=== PATIENT | male | born 1945 | race Caucasian/White ===

== ENCOUNTER 2019-06-15 02:20 | Emergency (ER) | payer OTHER, SELFPAY ==
[2019-06-15 02:27] VITALS: BP 189/119; PULSE 98; RESP 18; TEMP 36.5; O2SAT 98; BMI 33.9
--- NOTE | 2019-06-15 02:35 | W.ED.ANXIETY ---
HPI - Anxiety General: Chief Complaint: Anxiety Stated Complaint: possible anxiety Time Seen by Provider: 06/15/19 02:24 History of Present Illness: HPI narrative: Patient states that he had a sudden onset of pain in his chest twice in his computer this evening about 1 hour ago it went away at best quick as it came patient says he is pain-free right now but he has been anxious he has posttraumatic stress syndrome stays up all hours night usually goes to bed 5 or 6 the morning he is feeling fine now and during the conversation patient decides he wants to go ahead and sign out AMA REPLACED BY [facility] ED PFSH: Social History Smoking and tobacco status: former smoker Course Vital Signs: Vital signs: Vital Signs Temperature 97.7 F 06/15/19 02:27 Pulse Rate 98 06/15/19 02:27 Respiratory Rate 18 06/15/19 02:27 Blood Pressure 189/119 06/15/19 02:27 Pulse Oximetry 98 06/15/19 02:27 MDM - Anxiety MDM Narrative: Medical decision making narrative: Patient advised that he should stay and get a cardiac work-up done patient declines asked to sign out AMA patient signed AMA form with Ashley nurse there is a witness. Patient appears stable his blood pressure is high he does take amlodipine for his blood pressure denies any signs or symptoms of cardiac at the time of his signing AMA Discharge Plan Discharge Patient Disposition: Left Against Medical Advice Clinical Impression: Acute anxiety Condition: Stable Discharge Orders: Discharge Order (Routine); Ordered 06/15/19 Ordered By: Johnny Malagon Referrals: Demetrio Schaeffer [Primary Care Provider] - Coding Level of Care Code ED Brand Strategy Manager for Zachary Sawyer
== END 2019-06-15 02:35 | disposition left against medical advice (07) ==
LOC: ER 02:45
PROVIDERS: Emergency Provider Nurse Practitioner Family; Family Provider Internal Medicine; PCP Internal Medicine
DX: F41.9 Anxiety disorder, unspecified (principal); Z53.21 Procedure and treatment not carried out due to patient leaving prior to being seen by health care provider; Z87.891 Personal history of nicotine dependence
CPT/HCPCS: 12345; 99281

== ENCOUNTER 2019-06-22 00:38 | Emergency (ER) | payer OTHER, SELFPAY ==
[2019-06-22 00:47] VITALS: BP 156/126; PULSE 100; RESP 20; TEMP 36.8; O2SAT 97; BMI 32.3
--- NOTE | 2019-06-22 00:58 | XR_ITS ---
WS: [id number] XR chest 1V portable [id number] REASON FOR EXAM: cough FINDINGS: Enlarged lymph node is seen in the right hilum. The heart and mediastinal interfaces normal. Tortuous descending thoracic aorta. The lung barclay show no pneumonia, pleural effusion, pulmonary edema, or mass effect. The chest is similar to 08/08/2018. XR/XR chest 1V portable [id number] IMPRESSION: Negative chest for acute findings The right hilum shows lymphadenopathy.
--- NOTE | 2019-06-22 00:58 | ECG_ITS ---
Measurements Intervals [place] Rate: 77 P: 52 NM: 164 QRS: -1 QRSD: 110 T: 33 QT: 397 QTc: 451 SINUS RHYTHM Compared to ECG 11/12/2018 15:03:38 Intraventricular conduction delay no longer present Electronically Signed On 06-22-2019 16:57:16 CDT by Amanda Carmona M.D. [id number]
--- NOTE | 2019-06-22 01:23 | ED_ITS ---
HPI - General Adult General: Chief complaint: General Medical Stated complaint: POSS ANXIETY Time Seen by Provider: 06/22/19 00:52 History of Present Illness: HPI narrative: Mark is a very nice 73-year-old male who comes in with the complaint of feeling out of it . He states that at home his blood pressure has been up and down his pulse is been erratic. He states he took a meclizine thinking this could be his vertigo although he denies any room spinning dizziness. He denies any chest pain, shortness of breath, back pain, abdominal pain or extremity weakness. Patient states that he just thought he should have his heart checked out. Patient denies any exacerbating alleviating factors. He has had similar symptoms in the past but a definitive cause could never be found. Associated symptoms: Deny chest pain, confusion, diaphoresis, dyspnea, headache(s), malaise, nausea, rash, palpitations, syncope or vomiting Review of Systems General: Reports: other (negative unless marked) Const: Denies: fever, chills, body aches, fatigue, malaise or diaphoresis Eyes: Denies: change in vision or blurry vision ENMT: Denies: throat pain, painful swallowing, hoarseness, ear pain, ear discharge, Change in hearing or nasal discharge Card: Denies: chest pain, palpitations, irregular heart rhythm, syncope, pre- syncope, shortness of breath on exertion or shortness of breath when lying down Resp: Denies: shortness of breath, productive cough, non-productive cough, wheezing, coughing up blood or chest congestion GI: Denies: abdominal pain, nausea, vomiting, vomiting blood, coffee grounds in vomit, diarrhea, constipation, cramping, blood in stool or black tarry stool : Denies: flank pain, difficulty urinating, painful urination, urinary frequency, urinary urgency, decreased urine ouput, urinary incontinence or blood in urine Musc: Denies: neck pain, back pain, extremity pain, extremity swelling, joint pain, joint swelling, joint warmth or joint stiffness Skin/Breast: Denies: rash, skin tenderness or yellow skin Neuro: Reports: dizziness; Denies: headache, numbness in extremities, weakness in extremities, changes in sensation, lack of coordination, difficulty walking, vertigo or confusion Endo: Denies: excessive thirst, tired all the time, cold intolerance, excessive sweating, flushing or hot flashes Jason/Lymph: Denies: easy bruising, easy bleeding, petechiae or enlarged lymph nodes All/Imm: Denies: hives, throat swelling, tongue swelling, facial swelling or acute wheezing PFSH ED PFSH: Medical History History of IBS Hypertension Social History Smoking and tobacco status: former smoker Physical Exam Const: COMMON NORMALS: no apparent distress, oriented x3, no limitations, healthy appearing and well nourished EXAM LIMITATIONS: no altered mental status GENERAL APPEARANCE: cooperative, well kempt and well developed ORIENTATION/CONSCIOUSNESS: Yes awake HENMT: COMMON NORMALS: normocephalic, head/scalp atraumatic, hearing grossly normal bilaterally, external ears normal, EAC's normal, external nose normal and moist oral mucous membranes HEAD & SCALP: normal to inspection, normocephalic and atraumatic FACE & SINUS: normal facial exam and face symmetric NOSE: external nose normal and nares normal EXTERNAL EAR: Yes external ears normal EXTERNAL AUDITORY CANAL: EAC's normal MOUTH: oral and palatal mucosa normal and tongue normal Eye: COMMON NORMALS: PERRL, EOMs intact bilaterally, conjunctivae normal and no scleral icterus GENERAL EYE: normal appearance of both eyes and normal light reflex CONJUNCTIVA: Yes conjunctivae normal SCLERA: sclerae normal CORNEA: Yes corneas normal PUPIL: Yes PERRL DIRECT OPHTHALMOSCOPY: Yes normal light reflex Neck/C-Spine: COMMON NORMALS: full ROM, no lymphadenopathy, supple, no meningeal signs and no JVD GENERAL: Yes normal visual inspection and Yes trachea midline CERVICAL SPINE: Yes cervical ROM normal Chest: COMMONS NORMALS: inspection of chest normal and palpation of chest normal Resp: COMMON NORMALS: normal respiratory effort, no retractions, no use of accessory muscles and clear to auscultation bilaterally EFFORT & INSPECTION: Yes able to speak in complete sentences AUSCULTATION: clear to auscultation bilaterally Cardio: COMMON NORMALS: no JVD, regular rate, regular rhythm, S1 normal heart sound, S2 normal heart sound, no gallops, no clicks, no murmurs and no rub JUGULAR VENOUS DISTENTION: no JVD RATE: regular rate RHYTHM: regular rhythm HEART SOUNDS: S1 normal and S2 normal GI: COMMON NORMALS: soft to palpation, non-tender, no hepatosplenomegaly and no masses INSPECTION: Yes normal to inspection PALPATION: Yes soft and Yes no hepatosplenomegaly : COMMON NORMALS: Yes no CVA tenderness BLADDER/KIDNEY EXAM: Yes no CVA tenderness Back/Pelvis: COMMON NORMALS: no CVA tenderness, thoracic and lumbar spine normal to inspection, no thoracic nor lumbar tenderness and thoraco-lumbar ROM normal Extremity: COMMON NORMALS: normal to inspection, full ROM, normal capillary refill, no joint enlargement, no clubbing, cyanosis or edema and no calf tenderness Neuro: COMMON NORMALS: oriented x3, CN's II-XII intact bilaterally, moves all extremities, no focal motor deficits and no sensory deficits noted MENINGEAL SIGNS: Yes no meningeal signs Psych: COMMON NORMALS: mental status grossly normal, thought process normal, cooperative, affect normal, speech normal and activity/motor behavior normal APPEARANCE: Yes well kempt SPEECH: Yes normal speech THOUGHT PROCESS: normal thought process Skin: COMMON NORMALS: no rashes or lesions noted, skin turgor normal, no jaundice, no petechiae and no mottling GENERAL SKIN EXAM: no rashes or lesions noted and turgor normal Course Vital Signs: Vital signs: Vital Signs Temperature 98.3 F 06/22/19 00:47 Pulse Rate 78 06/22/19 02:04 Respiratory Rate 16 06/22/19 02:04 Blood Pressure 138/74 06/22/19 02:04 Pulse Oximetry 99 06/22/19 02:04 MDM - General Adult MDM Narrative: Medical decision making narrative: 0220 -I was made aware by nursing that the patient insisted upon discharge. I was in caring for another critically ill patient at the time that he made this decision. I did not get a chance to discuss this with the patient. We will have nursing try to contact him and encouraged him to return for complete work-up. The patient eloped from the ER but did sign an AMA statement as nursing warned him of the risks of leaving AGAINST MEDICAL ADVICE. The patient stated he understood the risk to the nurse but I was not able to talk to him before he left the emergency department. Imaging Data^: CXR: My impression: No acute cardiopulmonary findings. EKG Data^: EKG 1: Attestation: I personally reviewed and interpreted this EKG as follows: EKG interpretation date: 06/22/19 EKG interpretation time: 01:19 Interpretation: Normal sinus rhythm at 77 beats a minute, incomplete right bundle branch block, no acute ST or T wave changes. Discharge Plan Discharge Patient Disposition: Left Against Medical Advice Clinical Impression: Dizziness Referrals: Demetrio Schaeffer [Primary Care Provider] - Interventions: ED Discharge Assessment Last Done: 06/22/19 02:04 ED Charges Last Done: 06/22/19 02:05 Discharge Date/Time: 06/22/19 02:05 Coding Level of Care Code ED Stadium Attendant for Chg Silverio
--- NOTE | 2019-06-22 02:02 | PC.NURSE ---
Patient states that the medicine he tool prior to coming to the er has made him feel better and he no longers wants to be seen the the Dr. Patient wishes to Leave AMA and signed form. Patient will return if symptoms return.
[2019-06-22 02:04] VITALS: BP 138/74; PULSE 78; RESP 16; O2SAT 99
== END 2019-06-22 02:05 | disposition left against medical advice (07) ==
LOC: ER 01:04
PROVIDERS: Emergency Provider Emergency Medicine; Family Provider Internal Medicine; PCP Internal Medicine
DX: R42 Dizziness and giddiness (principal); Z53.21 Procedure and treatment not carried out due to patient leaving prior to being seen by health care provider; I10 Essential (primary) hypertension; Z87.891 Personal history of nicotine dependence
CPT/HCPCS: 12345; 71045; 93005; 99281; 99283

== ENCOUNTER 2019-09-22 18:00 | Emergency (ER) | payer OTHER, SELFPAY ==
[2019-09-22 18:33] VITALS: BP 147/93; PULSE 86; RESP 16; TEMP 36.6; O2SAT 96; BMI 32.3
[2019-09-22 19:53] LABS: Basophils # 0.1 10^3/uL (0.0-0.1); Basophils % 0.5 %; Eosinophils % 0.4 %; Hematocrit 44.7 % (42.0-52.0); Hemoglobin 15.2 g/dL (11.7-16.6); Lymphocytes # 0.8 10^3/uL (0.8-4.8); Lymphocytes % 7.8 %; Mean Corpuscular Volume 94.1 fL (80-94); Mean Platelet Volume 11.1 fL (7.4-10.4); Monocytes # 0.8 10^3/uL (0.2-0.9); Monocytes % 7.3 %; Neutrophils # 8.92 10^3/uL (1.8-7.7); Neutrophils % 83.7 %; Nucleated Red Blood Cells % 0 %; Platelet Count 202 10^3/cmm (130-400); Red Blood Count 4.75 10^6/uL (4.1-5.3); White Blood Count 10.7 10^3/uL (4.0-10.0)
[2019-09-22 20:14] LABS: Alanine Aminotransferase 18 U/L (0-41); Albumin Level 4.5 g/dL (3.5-5.2); Alkaline Phosphatase 101 IU/L (40-130); Anion Gap 13.1 (5-19); Aspartate Amino Transferase 23 U/L (0-40); Blood Urea Nitrogen 18 mg/dL (8-23); Calcium 9.3 mg/dL (8.5-10.5); Carbon Dioxide 23 mmol/L (22-29); Chloride 103 mmol/L (98-107); Globulin 2.4 g/dL (1.3-4.6); Glucose 115 mg/dL (65-115); Osmolality Calculated 277 mOsm/kg (285-295); Potassium 4.1 mmol/L (3.5-5.1); Sodium 135 mmol/L (136-145); Total Bilirubin 1.2 mg/dL (0.15-1.2); Total Protein 6.9 g/dL (6.6-8.7)
--- NOTE | 2019-09-22 20:22 | ED_ITS ---
HPI - General Adult General: Chief complaint: General Medical Stated complaint: constipated Time Seen by Provider: 09/22/19 20:14 Source: patient and family Mode of arrival: ambulatory Limitations: no limitations History of Present Illness: HPI narrative: Mark is a nice 74-year-old male comes in complaining of constipation. Patient states that he feels like he needs to have a bowel movement but cannot get it out. Patient tried to disimpact himself earlier today and only got a small amount of stool out. The patient does not want to use an enema. Patient comes here requesting something to help move his bowels as his brother use the same thing and was very successful in having a bowel movement. Patient believes this was lactulose. Patient denies any fever, chills, nausea or vomiting or abdominal pain. He denies any urinary symptoms. He denies any history of bowel obstructions. Associated symptoms: Deny chest pain, dyspnea, headache(s), nausea, rash, palpitations, syncope or vomiting Review of Systems Const: Denies: fever(s) Eyes: Denies: change in vision ENMT: Denies: throat pain Card: Denies: chest pain, palpitations, syncope, pre-syncope or dyspnea on exertion Resp: Denies: dyspnea, productive cough or non-productive cough GI: Reports: constipation; Denies: abdominal pain, nausea, vomiting or diarrhea : Denies: flank pain, dysuria, urinary frequency or urinary urgency Musc: Denies: neck pain, back pain or extremity pain Skin/Breast: Denies: rash or pruritus Neuro: Denies: headache(s), numbness in extremities, weakness in extremities or dizziness Jason/Lymph: Denies: easy bruising or easy bleeding All/Imm: Denies: urticaria PFSH ED PFSH: Medical History History of IBS Hypertension Social History Smoking and tobacco status: former smoker Physical Exam Const: COMMON NORMALS: no acute distress, patient oriented x3, no limitations, healthy appearing and well nourished GENERAL APPEARANCE: cooperative, well kempt and well developed HENMT: COMMON NORMALS: normocephalic, atraumatic, external ears normal, EAC's normal and Normal external nose present HEAD & SCALP: normal to inspection, normocephalic and atraumatic FACE & SINUS: normal facial exam and face symmetric NOSE: Normal external nose present and Normal nares present EXTERNAL EAR: Yes external ears normal EXTERNAL AUDITORY CANAL: EAC's normal MOUTH: Normal oral and palatal mucosa present, lip normal and tongue normal Eye: COMMON NORMALS: Equal, round and reactive pupils present and conjunctivae normal GENERAL EYE: appearance normal, both eyes and all related structures ALIGNMENT: Yes alignment normal PERIORBITAL: periorbital findings normal EYELID: eyelids normal CONJUNCTIVA: Yes conjunctivae normal SCLERA: sclerae normal PUPIL: Yes Equal, round and reactive pupils present Neck/C-Spine: COMMON NORMALS: full ROM, no lymphadenopathy, supple, no meningeal signs and no JVD GENERAL: Yes normal visual inspection and Yes trachea midline Chest: COMMONS NORMALS: normal inspection of the chest and normal palpation of entire chest wall Resp: COMMON NORMALS: normal respiratory effort, No retractions and No use of accessory muscles EFFORT & INSPECTION: Yes able to speak in complete sentences and Yes symmetric chest movement AUSCULTATION: no crackles, no rales, no rhonchi and no wheezes Cardio: COMMON NORMALS: no JVD, regular rate, regular rhythm, S1 normal heart sound present and S2 normal heart sound present RATE: regular rate RHYTHM: regular rhythm HEART SOUNDS: S1 normal heart sound present, S2 normal heart sound present, no click, no gallops, no murmurs, no rubs and abnormal split S2 GI: COMMON NORMALS: Soft to palpation and No hepatosplenomegaly present PALPATION: Yes Soft to palpation, No Tenderness to palpation present (GI), No Guarding due to palpation present (GI), No Rigid due to palpation, Yes No hepatosplenomegaly present, No Hernia present, No Palpable mass present and No Pulsatile mass present : COMMON NORMALS: Yes no CVA tenderness BLADDER/KIDNEY EXAM: Yes no CVA tenderness Back/Pelvis: COMMON NORMALS: no CVA tenderness, thoracic and lumbar spine normal to inspection, no thoracic nor lumbar tenderness and thoraco-lumbar ROM normal Extremity: COMMON NORMALS: normal to inspection, full ROM, capillary refill normal, no joint enlargement, no clubbing, cyanosis or edema and no calf tenderness Neuro: COMMON NORMALS: patient oriented x3, CN's II-XII intact bilaterally, moves all extremities, no focal motor deficits and no sensory deficits noted MENINGEAL SIGNS: Yes no meningeal signs SPEECH: speech normal Psych: COMMON NORMALS: mental status grossly normal, Normal thought process present, cooperative, normal affect, speech normal and activity/motor behavior normal APPEARANCE: Yes well kempt SPEECH: Yes normal speech THOUGHT PROCESS: Normal thought process present Skin: COMMON NORMALS: no rashes or lesions noted, turgor normal, no jaundice, no petechiae and no mottling GENERAL SKIN EXAM: no rashes or lesions noted and turgor normal Course Vital Signs: Vital signs: Vital Signs Temperature 97.9 F 09/22/19 18:33 Pulse Rate 82 09/22/19 20:40 Respiratory Rate 14 09/22/19 20:44 Blood Pressure 158/93 09/22/19 20:40 Pulse Oximetry 98 09/22/19 20:40 MDM - General Adult MDM Narrative: Medical decision making narrative: Mark is a nice 74-year-old male well-known to me. He does not like Min in the way of testing or involved care. He agrees to take a laxative, lactulose that his brother has taken successfully in the past. He refuses acute abdominal series or any further imaging. He wants to take this medicine and to go home because his brother stated it works so well for him he had to have a bowel movement outdoors when he used it. That is the only thing the patient agrees to at this time. At this time I see no sign of peritonitis or acute abdominal catastrophe. He does agree to return should his symptoms change or worsen. Lab Data: Attestation: I reviewed the patient's lab results. Labs: Lab Results 09/22/19 09/22/19 Range/Units 19:35 19:35 WBC 10.7 H (4.0-10.0) 10^3/ uL RBC 4.75 (4.1-5.3) 10^6/u L Hgb 15.2 (11.7-16.6) g/dL Hct 44.7 (42.0-52.0) % MCV 94.1 H (80-94) fL MCH 32.0 (28.0-34.0) pg MCHC 34.0 (30.0-36.0) g/dL RDW 13.0 (12.1-15.1) % Plt Count 202 (130-400) 10^3/c mm MPV 11.1 H (7.4-10.4) fL Neut % (Auto) 83.7 % Lymph % (Auto) 7.8 % O'Brien % (Auto) 7.3 % Eos % (Auto) 0.4 % Baso % (Auto) 0.5 % Neut # (Auto) 8.92 H (1.8-7.7) 10^3/u L Lymph # (Auto) 0.8 (0.8-4.8) 10^3/u L O'Brien # (Auto) 0.8 (0.2-0.9) 10^3/u L Eos # (Auto) 0.0 (0.0-0.8) 10^3/u L Baso # (Auto) 0.1 (0.0-0.1) 10^3/u L Nucleated RBC % (a uto) 0 % Nucleated RBCs # 0.0 /100WBC Sodium 135 L (136-145) mmol/L Potassium 4.1 (3.5-5.1) mmol/L Chloride 103 (98-107) mmol/L Carbon Dioxide 23 (22-29) mmol/L Anion Gap 13.1 (5-19) BUN 18 (8-23) mg/dL Creatinine 1.0 (0.7-1.2) mg/dL GFR Calculation Not Reportable Glucose 115 (65-115) mg/dL Calculated Osmolal ity 277 L (285-295) mOsm/k g Calcium 9.3 (8.5-10.5) mg/dL Total Bilirubin 1.2 (0.15-1.2) mg/dL AST 23 (0-40) U/L ALT 18 (0-41) U/L Alkaline Phosphata se 101 (40-130) IU/L Total Protein 6.9 (6.6-8.7) g/dL Albumin 4.5 (3.5-5.2) g/dL Globulin 2.4 (1.3-4.6) g/dL Discharge Plan Discharge Patient Disposition: Home Condition: Stable Prescriptions: New lactulose 20 gram packet 20 gm PO DAILY PRN (Reason: constipation) Qty: 30 RF: 0 Discharge Orders: Discharge Order (Routine); Ordered 09/22/19 Ordered By: Christina Ovalle Referrals: [facility] [Primary Care Provider] - 1-3 days Discharge Diet: Usual diet Discharge Activity: Increase activity as tolerated Patient Instructions: Constipation (ED) Activity Restrictions/Additional Instructions: Please return to the ER immediately for any of the signs or symptoms listed on your discharge instruction sheets, worsening/changing of your symptoms, you are not getting better as quickly as expected, or for ANY other cause or concerns. You have declined full evaluation and care here for your symptoms but if you change your mind, your symptoms change or worsen or have any other concerns please return to the ER immediately for recheck. Discharge Date/Time: 09/22/19 20:53 Coding Level of Care Code ED Storage Garage Attendant for Chg Fwd Exam Comprehensive
[2019-09-22 20:40] VITALS: BP 158/93; PULSE 82; RESP 14; O2SAT 98
[2019-09-22] MEDS: lactulose oral liq 20 gm/30 mL UDC 30 GM PO (20:41)
[2019-09-22 20:44] VITALS: RESP 14
== END 2019-09-22 20:53 | disposition home or self-care (01) ==
PROVIDERS: Emergency Provider Emergency Medicine
DX: I10 Essential (primary) hypertension (principal); Z87.891 Personal history of nicotine dependence
CPT/HCPCS: 12345; 36415; 80053; 85025; 99281; 99283

== ENCOUNTER 2020-04-29 06:02 | Emergency (ER) | payer OTHER, SELFPAY ==
[2020-04-29 06:07] VITALS: BP 162/100; PULSE 93; RESP 17; TEMP 36.8; O2SAT 99; BMI 30.7
--- NOTE | 2020-04-29 06:27 | ECG_ITS ---
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 Measurements Intervals [place] Rate: 78 P: 41 MI: 173 QRS: 10 QRSD: 104 T: 32 QT: 392 QTc: 448 Interpretive Statements SINUS RHYTHM WITH SINUS ARRHYTHMIA INCOMPLETE RIGHT BUNDLE BRANCH BLOCK [90+ ms QRS DURATION, TERMINAL R IN V1/V2, 40+ ms S IN I/aVL/V4/V5/V6] Compared to ECG 06/22/2019 01:19:31 Incomplete right bundle-branch block now present Electronically Signed On 04-29-2020 19:36:56 [employer] SURFACE HEATER OPERATOR by Amanda Carmona M.D. [id number]
--- NOTE | 2020-04-29 06:27 | XRR_ITS ---
PROCEDURE INFORMATION: Exam: XR Chest Exam date and time: 04/29/2020 7:47 AM Age: 74 years old Clinical indication: Cough and dyspnea; Additional info: Dyspnea/cough TECHNIQUE: Imaging protocol: XR of the chest Views: 1 view. COMPARISON: CR XR chest 1V portable [id number] 06/22/2019 1:01 AM FINDINGS: Lungs: Unremarkable. No consolidation. Pleural spaces: Unremarkable. No pleural effusion. No pneumothorax. Heart/Mediastinum: The heart is not enlarged. There is tortuosity of the aorta. Bones/joints: Unremarkable. XR/XR chest 1V portable [id number] IMPRESSION: No acute findings.
--- NOTE | 2020-04-29 06:28 | ED_ITS ---
HPI - Abdominal Pain General: Chief Complaint: Abdominal Pain Stated Complaint: left sided abd pain Time Seen by Provider: 04/29/20 06:19 History of Present Illness: HPI narrative: 74 yo male presents with complaints of abd for the last week. 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 He is noticed that this is accompanied by rapid heart rates. He also states he gets panic attacks. Has not had any nausea vomiting or diarrhea no hematochezia melena hematemesis or coffee-ground emesis. No dysuria urgency or frequency. MD elicited complaint: abdominal pain Pertinent past history: constipation and other (IBS) Onset (ago): week(s) (1) Location: RUQ Severity: mild Quality: cramping Radiation: none Migration to: epigastric Exacerbating factors: nothing Relieving factors: nothing Associated Symptoms: Denies anorexia, belching, bloating, change in bowel habits, change in stool character, chills, coffee ground emesis, constipation, GI cramping, diarrhea, dyspepsia, dysuria, excessive flatus, fever(s), heartburn, hematochezia, hematuria, hematemesis, fecal incontinence, loose stools, melena, nausea, poor appetite, syncope and vomiting Review of Systems Const: Denies: fever(s) or chills ENMT: Denies: throat pain, ear or mastoid pain, nasal discharge or nasal congestion Card: Denies: syncope Resp: Denies: dyspnea, productive cough or non-productive cough GI: Denies: nausea, vomiting, hematemesis, coffee ground emesis, heartburn, diarrhea, constipation, bloating, GI cramping, belching, excessive flatus, fecal incontinence, change in bowel habits, change in stool character, hematochezia or melena : Denies: dysuria or hematuria Skin/Breast: Denies: rash or pruritus PFSH ED PFSH: Medical History (Updated 04/29/20 @ 08:19 by Benja Guzman DO) History of IBS Hypertension Surgical History (Updated 04/29/20 @ 06:35 by Benja Guzman DO) S/P cholecystectomy Social History Smoking and tobacco status: former smoker Physical Exam Const: COMMON NORMALS: no acute distress GENERAL APPEARANCE: cooperative and comfortable ORIENTATION/CONSCIOUSNESS: Yes awake, Yes oriented to person, Yes oriented to place and Yes oriented to time HENMT: COMMON NORMALS: normocephalic, atraumatic and hearing grossly normal bilaterally HEAD & SCALP: normocephalic and atraumatic Neck/C-Spine: COMMON NORMALS: no JVD Lymph: LYMPHATIC: no lymphadenopathy noted and no lymphedema noted Resp: COMMON NORMALS: normal respiratory effort, No retractions, No use of accessory muscles and clear to auscultation bilaterally AUSCULTATION: clear to auscultation bilaterally Cardio: COMMON NORMALS: no JVD, regular rate, regular rhythm and No murmurs present (Cardio) RATE: regular rate RHYTHM: regular rhythm GI: COMMON NORMALS: Soft to palpation and No hepatosplenomegaly present AUSCULTATION: Yes normoactive bowel sounds PALPATION: Yes Soft to palpation, No Tenderness to palpation present (GI), No Guarding due to palpation present (GI) and Yes No hepatosplenomegaly present Extremity: COMMON NORMALS: normal to inspection, capillary refill normal, no clubbing, cyanosis or edema, no calf tenderness and no pedal edema Neuro: SENSORIUM/ORIENTATION: Yes oriented to person, Yes oriented to place and Yes oriented to time Skin: COMMON NORMALS: no rashes or lesions noted GENERAL SKIN EXAM: no rashes or lesions noted Course Vital Signs: Vital signs: Vital Signs Temperature 98.2 F 04/29/20 06:07 Pulse Rate 87 04/29/20 06:51 Respiratory Rate 22 H 04/29/20 06:51 Blood Pressure 168/94 04/29/20 06:51 Pulse Oximetry 98 04/29/20 06:51 MDM - Abdominal Pain MDM Narrative: Medical decision making narrative: Labs reviewed completed no significant abnormalities were waiting on getting the CT patient refuses a CT he is worried that [facility] he also thinks it will cause him a great deal of anxiety if he gets any contrast dye both the nurses myself have tried to discuss this with him he does not wish to discuss he wishes to leave AMA. He did tell me he takes to 200 mg tablets of caffeine and a shot of vodka every 6 hours. Encouraged him to reconsider that as its likely to be the cause of abdominal discomfort he may return at any point if he wishes to finish the evaluation. Lab Data: Labs: Lab Results 04/29/20 04/29/20 04/29/20 Range/Units 06:23 06:23 06:23 WBC 6.3 (4.0-10.0) 10^3/ uL RBC 5.07 (4.1-5.3) 10^6/u L Hgb 16.1 (11.7-16.6) g/dL Hct 47.2 (42.0-52.0) % MCV 93.1 (80-94) fL MCH 31.8 (28.0-34.0) pg MCHC 34.1 (30.0-36.0) g/dL RDW 13.3 (12.1-15.1) % Plt Count 208 (130-400) 10^3/c mm MPV 11.0 H (7.4-10.4) fL Neut % (Auto) 49.3 % Lymph % (Auto) 34.8 % [place] % (Auto) 10.7 % Eos % (Auto) 4.2 % Baso % (Auto) 0.8 % Neut # (Auto) 3.09 (1.8-7.7) 10^3/u L Lymph # (Auto) 2.2 (0.8-4.8) 10^3/u L [place] # (Auto) 0.7 (0.2-0.9) 10^3/u L Eos # (Auto) 0.3 (0.0-0.8) 10^3/u L Baso # (Auto) 0.1 (0.0-0.1) 10^3/u L Nucleated RBC % (a uto) 0 % Nucleated RBCs # 0.0 /100WBC Sodium 135 L (136-145) mmol/L Potassium 4.7 (3.5-5.1) mmol/L Chloride 101 (98-107) mmol/L Carbon Dioxide 23 (22-29) mmol/L Anion Gap 15.7 (5-19) BUN 16 (8-23) mg/dL Creatinine 0.8 (0.7-1.2) mg/dL GFR Calculation Not Reportable Glucose 122 H (65-115) mg/dL Calculated Osmolal ity 282 L (285-295) mOsm/k g Lactic Acid (0.5-2.2) mmol/L Calcium 9.0 (8.5-10.5) mg/dL Total Bilirubin 0.9 (0.15-1.2) mg/dL AST 35 (0-40) U/L ALT 26 (0-41) U/L Alkaline Phosphata se 144 H (40-130) IU/L Creatine Kinase 154 (39-308) U/L Troponin T Baselin e 7 (0-15) ng/L Total Protein 7.1 (6.6-8.7) g/dL Albumin 4.5 (3.5-5.2) g/dL Globulin 2.6 (1.3-4.6) g/dL Lipase 51 (13-60) U/L TSH 5.11 H (0.27-4.20) uIU/ mL Urine Color (Yellow) Urine Appearance (CLEAR) Urine pH (5-7) Ur Specific Gravit y (1.005-1.030) Urine Protein (Negative) Urine Glucose (UA) (Normal) Urine Ketones (Negative) Urine Blood (Negative) Urine Nitrate (Negative) Urine Bilirubin (Negative) Urine Urobilinogen (Negative) mg/dL Ur Leukocyte Chay[place] ase (Negative) 04/29/20 04/29/20 Range/Units 06:25 06:40 WBC (4.0-10.0) 10^3/ uL RBC (4.1-5.3) 10^6/u L Hgb (11.7-16.6) g/dL Hct (42.0-52.0) % MCV (80-94) fL MCH (28.0-34.0) pg MCHC (30.0-36.0) g/dL RDW (12.1-15.1) % Plt Count (130-400) 10^3/c mm MPV (7.4-10.4) fL Neut % (Auto) % Lymph % (Auto) % [place] % (Auto) % Eos % (Auto) % Baso % (Auto) % Neut # (Auto) (1.8-7.7) 10^3/u L Lymph # (Auto) (0.8-4.8) 10^3/u L [place] # (Auto) (0.2-0.9) 10^3/u L Eos # (Auto) (0.0-0.8) 10^3/u L Baso # (Auto) (0.0-0.1) 10^3/u L Nucleated RBC % (a uto) % Nucleated RBCs # /100WBC Sodium (136-145) mmol/L Potassium (3.5-5.1) mmol/L Chloride (98-107) mmol/L Carbon Dioxide (22-29) mmol/L Anion Gap (5-19) BUN (8-23) mg/dL Creatinine (0.7-1.2) mg/dL GFR Calculation Glucose (65-115) mg/dL Calculated Osmolal ity (285-295) mOsm/k g Lactic Acid 1.8 (0.5-2.2) mmol/L Calcium (8.5-10.5) mg/dL Total Bilirubin (0.15-1.2) mg/dL AST (0-40) U/L ALT (0-41) U/L Alkaline Phosphata se (40-130) IU/L Creatine Kinase (39-308) U/L Troponin T Baselin e (0-15) ng/L Total Protein (6.6-8.7) g/dL Albumin (3.5-5.2) g/dL Globulin (1.3-4.6) g/dL Lipase (13-60) U/L TSH (0.27-4.20) uIU/ mL Urine Color Yellow (Yellow) Urine Appearance Clear (CLEAR) Urine pH 6.5 (5-7) Ur Specific Gravit y 1.015 (1.005-1.030) Urine Protein Neg (Negative) Urine Glucose (UA) Norm (Normal) Urine Ketones Negative (Negative) Urine Blood Neg (Negative) Urine Nitrate Negative (Negative) Urine Bilirubin Neg (Negative) Urine Urobilinogen Norm (Negative) mg/dL Ur Leukocyte [place] ase Negative (Negative) Discharge Plan Discharge Patient Disposition: Left Against Medical Advice Clinical Impression: Abdominal pain, History of IBS, Hypothyroid Condition: Stable Prescriptions: No Action lactulose 20 gram packet 20 gm PO DAILY PRN (Reason: constipation) Qty: 30 RF: 0 Patient Instructions: Abdominal Pain (ED) Activity Restrictions/Additional Instructions: You have chosen to leave AGAINST MEDICAL ADVICE. You are welcome to return at any time if your symptoms worsen please return to the nearest emergency room. Coding Level of Care Code ED Tile Machine Operator for Chg Fwd Exam Comprehensive
[2020-04-29] MEDS: sodium chloride 0.9% 1,000 ML 999 ML IV (06:36)
[2020-04-29 06:38] LABS: Basophils # 0.1 10^3/uL (0.0-0.1); Basophils % 0.8 %; Eosinophils # 0.3 10^3/uL (0.0-0.8); Eosinophils % 4.2 %; Hematocrit 47.2 % (42.0-52.0); Hemoglobin 16.1 g/dL (11.7-16.6); Lymphocytes # 2.2 10^3/uL (0.8-4.8); Lymphocytes % 34.8 %; Mean Corpuscular HGB Conc 34.1 g/dL (30.0-36.0); Mean Corpuscular Hemoglobin 31.8 pg (28.0-34.0); Mean Corpuscular Volume 93.1 fL (80-94); Monocytes # 0.7 10^3/uL (0.2-0.9); Monocytes % 10.7 %; Neutrophils # 3.09 10^3/uL (1.8-7.7); Neutrophils % 49.3 %; Nucleated Red Blood Cells % 0 %; Platelet Count 208 10^3/cmm (130-400); Red Blood Count 5.07 10^6/uL (4.1-5.3); Red Cell Distribution Width 13.3 % (12.1-15.1); White Blood Count 6.3 10^3/uL (4.0-10.0)
[2020-04-29 06:51] VITALS: BP 168/94; PULSE 87; RESP 22; O2SAT 98
[2020-04-29 07:05] LABS: Add Urine Microscopic? NO
[2020-04-29 07:12] LABS: Lactic Sepsis W/Reflex 1.8 mmol/L (0.5-2.2)
[2020-04-29 07:14] LABS: Bilirubin Urine Neg (Negative); Blood Urine Neg (Negative); Glucose Urine UA Norm (Normal); Ketones Urine Negative (Negative); Leukocyte Esterase Urine Negative (Negative); Nitrate Urine Negative (Negative); Protein Urine Neg (Negative); Specific Gravity, Urine 1.015 (1.005-1.030); Urine Appearance Clear (CLEAR); Urine Color Yellow (Yellow); Urobilinogen Urine Norm (Negative); pH Urine 6.5 (5-7)
[2020-04-29 08:05] LABS: Troponin(5th) Baseline 7 ng/L (0-15)
[2020-04-29 08:12] LABS: Albumin Level 4.5 g/dL (3.5-5.2); Alkaline Phosphatase 144 IU/L (40-130); Blood Urea Nitrogen 16 mg/dL (8-23); Carbon Dioxide 23 mmol/L (22-29); Chloride 101 mmol/L (98-107); Globulin 2.6 g/dL (1.3-4.6); Glucose 122 mg/dL (65-115); Lipase 51 U/L (13-60); Osmolality Calculated 282 mOsm/kg (285-295); Sodium 135 mmol/L (136-145); Total Bilirubin 0.9 mg/dL (0.15-1.2); Total Protein 7.1 g/dL (6.6-8.7)
[2020-04-29 08:13] LABS: Anion Gap 15.7 (5-19); Potassium 4.7 mmol/L (3.5-5.1); Thyroid Stimulating Hormone 5.11 uIU/mL (0.27-4.20)
[2020-04-29 08:14] LABS: Alanine Aminotransferase 26 U/L (0-41); Aspartate Amino Transferase 35 U/L (0-40); Creatine Phosphokinase 154 U/L (39-308)
--- NOTE | 2020-04-29 08:21 | PC.NURSE ---
patient was advised to stay but felt like the anxiety would kill him emd talked to him but he still left
[2020-04-29 08:28] VITALS: BP 136/78; PULSE 79; RESP 20; O2SAT 97
== END 2020-04-29 08:36 | disposition left against medical advice (07) ==
PROVIDERS: Emergency Provider Family Medicine
DX: R10.9 Unspecified abdominal pain (principal); K58.9 Irritable bowel syndrome, unspecified; E03.9 Hypothyroidism, unspecified; Z53.21 Procedure and treatment not carried out due to patient leaving prior to being seen by health care provider; I10 Essential (primary) hypertension; Z87.891 Personal history of nicotine dependence
CPT/HCPCS: 71045; 80053; 81003; 82550; 83605; 83690; 84443; 84484; 85025; 93005; 96360; 99284; J7030

== ENCOUNTER 2022-07-31 00:20 | Emergency (ER) | payer OTHER, SELFPAY ==
[2022-07-31 00:26] VITALS: BP 160/101; PULSE 82; RESP 14; TEMP 36.5; O2SAT 96; BMI 31.9
--- NOTE | 2022-07-31 00:34 | W.ED.GENADLT ---
HPI - General Adult General: Chief complaint: General Medical Stated complaint: dizzy , wants a RXN for amlodipine 10mg Time Seen by Provider: 07/31/22 00:23 History of Present Illness: 76-year-old male patient comes in today with complaints of dizziness and being without his amlodipine. [facility] and he is still waiting a prescription to be delivered. Patient appears nontoxic. Patient denies any shortness of breath or chest pain. Associated symptoms: Deny chest pain, dyspnea or vomiting Review of Systems General: Reports: 10 or more systems reviewed and unremarkable except in HPI and below Card: Denies: chest pain Resp: Denies: dyspnea GI: Denies: vomiting : Denies: difficulty urinating Musc: Denies: back pain PFS ED PFSH: Medical History (Updated 07/31/22 @ 00:43 by CATHY Alvarez) History of IBS Hypertension Surgical History (Updated 04/29/20 @ 06:35 by Benja Guzman DO) S/P cholecystectomy Social History Smoking and tobacco status: former smoker Physical Exam Const: COMMON NORMALS: alert HENMT: COMMON NORMALS: normocephalic HEAD & SCALP: normocephalic Neck/C-Spine: COMMON NORMALS: full ROM Resp: COMMON NORMALS: normal respiratory effort and clear to auscultation bilaterally AUSCULTATION: clear to auscultation bilaterally Cardio: COMMON NORMALS: regular rate and regular rhythm RATE: regular rate RHYTHM: regular rhythm Back/Pelvis: COMMON NORMALS: thoracic and lumbar spine normal to inspection Extremity: COMMON NORMALS: normal to inspection Neuro: SENSORIUM/ORIENTATION: Yes alert Skin: COMMON NORMALS: turgor normal GENERAL SKIN EXAM: turgor normal Course Vital Signs: Vital signs: Vital Signs Temperature 97.7 F 07/31/22 00:26 Pulse Rate 82 07/31/22 00:26 Respiratory Rate 14 07/31/22 00:26 Blood Pressure 160/101 07/31/22 00:26 Pulse Oximetry 96 07/31/22 00:26 Oxygen Delivery Me thod Room Air 07/31/22 00:26 MDM - General Adult Medical Decision Making 76-year-old male patient comes in today for complaints of dizziness and elevated blood pressure. On exam patient appears nontoxic. Lungs clear to auscultation. No edema is noted in extremities. Vital signs are normal except for some elevation of blood pressure at 160 systolic. Differential diagnosis includes but not limited to uncontrolled hypertension, anxiety, CHF, ACS. No signs of severe illness or injury is noted. Patient was written a prescription for 7 days worth of amlodipine to cover him until [facility]. Patient reported understanding of care plan and need for follow-up or return to the ER. Discharge Plan Discharge Patient Disposition: Home Clinical Impression: Hypertension Condition: Stable Prescriptions: New amlodipine 10 mg tablet 10 mg PO DAILY Qty: 7 1RF No Action lactulose 20 gram packet 20 gm PO DAILY PRN (Reason: constipation) Qty: 30 0RF Discharge Orders: Discharge ED (Routine); Ordered 07/31/22 Ordered By: Alan Buchanan Referrals: Sona Espitia MD [Primary Care Provider] - Discharge Diet: Usual diet Discharge Activity: Increase activity as tolerated Patient Instructions: Hypertension (ED) Activity Restrictions/Additional Instructions: Continue with routine medications. Follow-up with primary care. Return to ED for new concerns. Coding Level of Care Code ED Inspector And Adjuster [employer] Head for Zachary Sawyer
[2022-07-31 00:59] VITALS: BP 145/122; PULSE 82; RESP 18; O2SAT 96
== END 2022-07-31 01:00 | disposition home or self-care (01) ==
PROVIDERS: Emergency Provider Nurse Practitioner Family; PCP Family Medicine
DX: I10 Essential (primary) hypertension (principal); T46.1X6A Underdosing of calcium-channel blockers, initial encounter; Z76.0 Encounter for issue of repeat prescription; Z87.891 Personal history of nicotine dependence
CPT/HCPCS: 99283

== ENCOUNTER 2022-08-04 17:49 | Emergency (ER) | payer OTHER, SELFPAY ==
[2022-08-04 18:04] VITALS: BP 135/90; PULSE 94; RESP 18; TEMP 36.7; O2SAT 94
--- NOTE | 2022-08-04 18:37 | ED_ITS ---
HPI - General Adult General: Chief complaint: General Medical Stated complaint: spasms/pain on right side Time Seen by Provider: 08/04/22 18:18 Source: patient Mode of arrival: ambulatory Limitations: no limitations History of Present Illness: Patient is a pleasant 76-year-old male here for complaints of right-sided flank pain. He states pain began today and describes it as a sharp spasm like disc omfort. He states he was concerned given the location and concern for kidney etiology. He states he has had kidney stones in the past. He is not complaining of any urinary symptoms or hematuria. He states pain seems to be intermittent and at time of my examination Associated symptoms: Deny chest pain, dyspnea, malaise, nausea, rash or vomiting Review of Systems Const: Denies: fever(s), chills, body aches, fatigue or malaise Card: Denies: chest pain Resp: Denies: dyspnea GI: Denies: abdominal pain, nausea, vomiting, diarrhea or change in bowel habits : Reports: flank pain; Denies: difficulty urinating, dysuria, urinary frequency, urinary urgency or urinary hesitancy Musc: Reports: back pain; Denies: neck pain, extremity pain, extremity swelling, joint pain or joint swelling Skin/Breast: Denies: rash Neuro: Denies: numbness in extremities, weakness in extremities or sensory changes PFSH ED PFSH: Medical History History of IBS Hypertension Surgical History S/P cholecystectomy Social History Smoking and tobacco status: former smoker Physical Exam Const: COMMON NORMALS: no acute distress, average body habitus, patient oriented x3, no limitations, healthy appearing, alert and well nourished GENERAL APPEARANCE: cooperative ORIENTATION/CONSCIOUSNESS: Yes awake, Yes oriented to person, Yes oriented to place and Yes oriented to time Chest: COMMONS NORMALS: normal inspection of the chest and normal palpation of entire chest wall Resp: COMMON NORMALS: normal respiratory effort and clear to auscultation bilaterally AUSCULTATION: clear to auscultation bilaterally Cardio: COMMON NORMALS: regular rate and regular rhythm RATE: regular rate RHYTHM: regular rhythm GI: COMMON NORMALS: Normal to inspection, nondistended, normoactive bowel sounds present, Soft to palpation, non-tender, No hepatosplenomegaly present and no masses PALPATION: Yes Soft to palpation and Yes No hepatosplenomegaly present : COMMON NORMALS: Yes no CVA tenderness (states pain has eased off at time of my exam) BLADDER/KIDNEY EXAM: Yes no CVA tenderness (states pain has eased off at time of my exam) Back/Pelvis: COMMON NORMALS: no CVA tenderness (states pain has eased off at time of my exam), thoracic and lumbar spine normal to inspection, no thoracic nor lumbar tenderness and thoraco-lumbar ROM normal Extremity: COMMON NORMALS: normal to inspection GENERAL: Yes normal exam except as noted Neuro: KUMAR COMA SCALE: document GCS findings Connelly coma scale eye opening: Spontaneous Connelly coma scale verbal response: Orientated Kumar coma scale motor response: Obey commands Connelly coma scale total score: 15 COMMON NORMALS: patient oriented x3 SENSORIUM/ORIENTATION: Yes alert, Yes oriented to person, Yes oriented to place and Yes oriented to time Skin: COMMON NORMALS: no rashes or lesions noted GENERAL SKIN EXAM: no rashes or lesions noted Course Vital Signs: Vital signs: Vital Signs Temperature 98.0 F 08/04/22 18:04 Pulse Rate 72 08/04/22 20:30 Respiratory Rate 16 08/04/22 20:30 Blood Pressure 168/102 08/04/22 20:30 Pulse Oximetry 98 08/04/22 20:30 Oxygen Delivery Me thod Room Air 08/04/22 20:30 [facility] - General Adult Medical Decision Making Patient's ED evaluation initially starting with a CBC, CMP, UA. Because of the 2+ blood noted in his urine analysis coupled with the right flank pain decision was made for CT imaging. He does not have any obstructive urolithiasis or acute findings. He does have a few LEFT minimal kidney stones. At this time patient will be treated for muscle spasm with Flexeril and recommendations for heat. He can follow-up with primary care in regards to the hematuria noted on his UA. Return to ED precautions given. Lab Data 08/04/22 19:15 08/04/22 19:15 Radiology Impressions Abdomen/Pelvis CT 08/04/22 20:05 IMPRESSION: 1. No obstructive urolithiasis or other acute finding. 2. Minimal left nephrolithiasis, fecal filled colon, and a few other chronic findings above. COMMENTS: Consistent with the [place] [employer]'s Incidental Findings Committee white paper (J Am Dank Radiol 2018): Any incidental renal lesion less than 1 cm or classified as too small to characterize, or any incidental cystic renal lesion characterized as simple-appearing, is likely benign. No follow-up imaging is recommended for these lesions per consensus recommendations based on imaging criteria. Laboratory Results WBC 6.2 10^3/uL (4.0-10.0) 08/04/22 19:15 RBC 5.47 10^6/uL (4.1-5.3) H 08/04/22 19:15 Hgb 17.1 g/dL (11.7-16.6) H 08/04/22 19:15 Hct 50.2 % (42.0-52.0) 08/04/22 19:15 MCV 91.8 fl (80-94) 08/04/22 19:15 MCH 31.3 pg (28.0-34.0) 08/04/22 19:15 MCHC 34.1 g/dL (30.0-36.0) 08/04/22 19:15 RDW 13.1 % (12.1-15.1) 08/04/22 19:15 Plt Count 215 10^3/cmm (130-400) 08/04/22 19:15 MPV 11.1 fL (7.4-10.4) H 08/04/22 19:15 Neut % (Auto) 67.1 % 08/04/22 19:15 Lymph % (Auto) 19.0 % 08/04/22 19:15 [place] % (Auto) 9.2 % 08/04/22 19:15 Eos % (Auto) 3.7 % 08/04/22 19:15 Baso % (Auto) 0.8 % 08/04/22 19:15 Neut # (Auto) 4.16 10^3/uL (1.8-7.7) 08/04/22 19:15 Lymph # (Auto) 1.2 10^3/uL (0.8-4.8) 08/04/22 19:15 [place] # (Auto) 0.6 10^3/uL (0.2-0.9) 08/04/22 19:15 Eos # (Auto) 0.2 10^3/uL (0.0-0.8) 08/04/22 19:15 Baso # (Auto) 0.1 10^3/uL (0.0-0.1) 08/04/22 19:15 Nucleated RBC % (auto) 0 % 08/04/22 19:15 Nucleated RBCs # 0.0 /100WBC 08/04/22 19:15 Sodium 138 mmol/L (136-145) 08/04/22 19:15 Potassium 4.0 mmol/L (3.5-5.1) 08/04/22 19:15 Chloride 104 mmol/L (98-107) 08/04/22 19:15 Carbon Dioxide 22 mmol/L (22-29) 08/04/22 19:15 Anion Gap 16.0 (5-19) 08/04/22 19:15 BUN 15 mg/dL (8-23) 08/04/22 19:15 Creatinine 0.8 mg/dL (0.7-1.2) 08/04/22 19:15 GFR Calculation Not Reportable 08/04/22 19:15 Glucose 95 mg/dL (65-115) 08/04/22 19:15 Calculated Osmolality 287 mOsm/kg (285-295) 08/04/22 19:15 Calcium 9.1 mg/dL (8.5-10.5) 08/04/22 19:15 Total Bilirubin 1.4 mg/dL (0.15-1.2) H 08/04/22 19:15 AST 20 U/L (0-40) 08/04/22 19:15 ALT 18 U/L (0-41) 08/04/22 19:15 Alkaline Phosphatase 101 U/L (40-130) 08/04/22 19:15 Total Protein 7.2 g/dL (6.6-8.7) 08/04/22 19:15 Albumin 4.5 g/dL (3.5-5.2) 08/04/22 19:15 Globulin 2.7 g/dL (1.3-4.6) 08/04/22 19:15 Urine Color Yellow (Yellow) 08/04/22 19:39 Urine Appearance Hazy (CLEAR) A 08/04/22 19:39 Urine pH 5 (5-7) 08/04/22 19:39 Ur Specific [place] 1.020 (1.005-1.030) 08/04/22 19:39 Urine Protein Neg (Negative) 08/04/22 19:39 Urine Glucose (UA) Norm (Normal) 08/04/22 19:39 Urine Ketones Negative (Negative) 08/04/22 19:39 Urine Blood 2+ (Negative) H 08/04/22 19:39 Urine Nitrate Negative (Negative) 08/04/22 19:39 Urine Bilirubin Neg (Negative) 08/04/22 19:39 Urine Urobilinogen Norm mg/dL (Negative) 08/04/22 19:39 Ur Leukocyte Esterase Negative (Negative) 08/04/22 19:39 Urine RBC 0-4 /hpf (0-2) H 08/04/22 19:39 Urine WBC None /hpf (0-5) 08/04/22 19:39 Ur Squamous Epith Cells 5-10 /hpf (0-5) H 08/04/22 19:39 Amorphous Sediment Not Reportable 08/04/22 19:39 Urine Bacteria 3+ /hpf (NONE) H 08/04/22 19:39 Urine Mucus Trace /hpf 08/04/22 19:39 Discharge Plan Discharge Patient Disposition: Home Clinical Impression: Muscle spasm of back Condition: Stable Prescriptions: New cyclobenzaprine 10 mg tablet 10 mg PO TID Qty: 9 0RF No Action lactulose 20 gram packet 20 gm PO DAILY PRN (Reason: constipation) Qty: 30 0RF amlodipine 10 mg tablet 10 mg PO DAILY Qty: 7 1RF Discharge Orders: Discharge ED (Routine); Ordered 08/04/22 Ordered By: Griselda Minor Referrals: Sona Espitia MD [Primary Care Provider] - Patient Instructions: Muscle Spasm (ED) Coding Level of Care Code ED Floral Assistant for Zachary Sawyer
[2022-08-04 19:42] LABS: Alanine Aminotransferase 18 U/L (0-41); Albumin Level 4.5 g/dL (3.5-5.2); Alkaline Phosphatase 101 U/L (40-130); Aspartate Amino Transferase 20 U/L (0-40); Blood Urea Nitrogen 15 mg/dL (8-23); Calcium 9.1 mg/dL (8.5-10.5); Carbon Dioxide 22 mmol/L (22-29); Chloride 104 mmol/L (98-107); Globulin 2.7 g/dL (1.3-4.6); Glucose 95 mg/dL (65-115); Osmolality Calculated 287 mOsm/kg (285-295); Sodium 138 mmol/L (136-145); Total Bilirubin 1.4 mg/dL (0.15-1.2); Total Protein 7.2 g/dL (6.6-8.7)
[2022-08-04 19:51] LABS: Basophils # 0.1 10^3/uL (0.0-0.1); Basophils % 0.8 %; Eosinophils # 0.2 10^3/uL (0.0-0.8); Eosinophils % 3.7 %; Hematocrit 50.2 % (42.0-52.0); Hemoglobin 17.1 g/dL (11.7-16.6); Lymphocytes # 1.2 10^3/uL (0.8-4.8); Mean Corpuscular HGB Conc 34.1 g/dL (30.0-36.0); Mean Corpuscular Hemoglobin 31.3 pg (28.0-34.0); Mean Corpuscular Volume 91.8 fl (80-94); Mean Platelet Volume 11.1 fL (7.4-10.4); Monocytes # 0.6 10^3/uL (0.2-0.9); Monocytes % 9.2 %; Neutrophils # 4.16 10^3/uL (1.8-7.7); Neutrophils % 67.1 %; Nucleated Red Blood Cells % 0 %; Platelet Count 215 10^3/cmm (130-400); Red Blood Count 5.47 10^6/uL (4.1-5.3); Red Cell Distribution Width 13.1 % (12.1-15.1); White Blood Count 6.2 10^3/uL (4.0-10.0)
[2022-08-04 19:56] LABS: Bilirubin Urine Neg (Negative); Blood Urine 2+ (Negative); Glucose Urine UA Norm (Normal); Ketones Urine Negative (Negative); Leukocyte Esterase Urine Negative (Negative); Nitrate Urine Negative (Negative); Protein Urine Neg (Negative); Urine Appearance Hazy (CLEAR); Urine Color Yellow (Yellow); Urobilinogen Urine Norm (Negative); pH Urine 5 (5-7)
[2022-08-04 19:57] LABS: Add Urine Microscopic? YES
[2022-08-04 19:58] LABS: Bacteria Urine 3+ /hpf; Mucus Urine TRACE /hpf; RBC Urine 0-4 /hpf (0-2)
--- NOTE | 2022-08-04 20:05 | CTR_ITS ---
PROCEDURE INFORMATION: Exam: CT Abdomen And Pelvis Without Contrast Exam date and time: 08/04/2022 8:14 PM Age: 76 years old Clinical indication: Other: Hematuria; Abdominal pain; Flank; Right; Prior surgery; Surgery date: 6+ months; Surgery type: Appendectomy, cholecystectomy; Additional info: R flank/back pain; Hematuria TECHNIQUE: Imaging protocol: Computed tomography of the abdomen and pelvis without contrast. Radiation optimization: All CT scans at this facility use at least one of these dose optimization techniques: automated exposure control; mA and/or kV adjustment per patient size (includes targeted exams where dose is matched to clinical indication); or iterative reconstruction. REPORTING DATA: Count of CT and Cardiac NM exams in prior 12 months: This patient has received 0 known CTs and 0 known cardiac nuclear medicine studies in the 12 months prior to the current study. COMPARISON: ES surgery / GI images 07/28/2017 8:48 AM RADIATION DOSE METRICS: Total DLP (mGy-cm): 680.73 FINDINGS: Lungs: The visualized lung bases are clear. Liver: Unremarkable. No discrete mass. Gallbladder and bile ducts: Absent gallbladder. Pancreas: Unremarkable with no suspicious mass. No ductal dilation. Spleen: The spleen is not enlarged. No suspicious mass is noted. Adrenal glands: Normal. No mass. Kidneys and ureters: A couple of left renal cysts up to 2.8 cm. Few tiny left kidney stones up to 3 mm. No hydronephrosis. No bladder or ureteral stone visualized. Stomach and bowel: The colon is rather fecal filled. Appendix: No evidence of appendicitis. Intraperitoneal space: Unremarkable. No free air. No suspicious fluid collection. Vasculature: Advanced diffuse vascular calcification noted. Lymph nodes: No enlarged lymph nodes. Urinary bladder: Unremarkable as visualized. Reproductive: Prostate is large. Bones/joints: No acute fracture. Mild spine DJD. Diffuse osteopenia. Soft tissues: Tiny fat umbilical hernia. CT/CT kidney stone [id number] IMPRESSION: 1. No obstructive urolithiasis or other acute finding. 2. Minimal left nephrolithiasis, fecal filled colon, and a few other chronic findings above. COMMENTS: Consistent with the [employer] [employer]'s Incidental Findings Committee white paper (J Am Dank Radiol 2018): Any incidental renal lesion less than 1 cm or classified as too small to characterize, or any incidental cystic renal lesion characterized as simple-appearing, is likely benign. No follow-up imaging is recommended for these lesions per consensus recommendations based on imaging criteria.
[2022-08-04 20:30] VITALS: BP 168/102; PULSE 72; RESP 16; O2SAT 98
== END 2022-08-04 22:34 | disposition home or self-care (01) ==
PROVIDERS: Emergency Provider Physician Assistant; PCP Family Medicine
DX: M62.830 Muscle spasm of back (principal); N20.0 Calculus of kidney; I10 Essential (primary) hypertension; Z87.891 Personal history of nicotine dependence
CPT/HCPCS: 36415; 74176; 80053; 81001; 85025; 99284

== ENCOUNTER 2022-08-28 09:25 | Outpatient (CLI) | payer OTHER, SELFPAY ==
--- NOTE | 2022-08-28 09:32 | CT_ITS ---
WS: [id number] CT HEAD TECHNIQUE: Noncontrast CT of the head obtained from the skullbase to the vertex. CLINICAL INFORMATION: DIZZINESS/HTN/HX OF STROKE COMPARISON: CT 2012 DLP: 1045.[address] scans at [facility] use at least one of these dose optimization techniques: automated e xposure control; mA and/or kV adjustment per patient size (includes targeted exams where dose is matc hed to clinical indication); or iterative reconstruction. FINDINGS: No evidence of intracranial hemorrhage or mass effect. Ventricular system and basal cisterns are bishop nt. Moderate small vessel changes with moderate parenchymal volume loss. No extra-axial fluid collect ions. No evidence of mass or mass effect. Intracranial vascular calcification. Dolichoectatic basilar artery unchanged. Mild mucosal thickening in the ethmoid air cells. Mastoid air cells well aerated. Normal posterior na sopharynx. CT/CT head wo con* [id number] IMPRESSION: 1. No evidence of intracranial hemorrhage or mass effect. 2. Moderate small vessel changes with moderate parenchymal volume loss progres sed compared to previous. 3. Intracranial vascular calcification. 4. No acute intracranial findings.
--- NOTE | 2022-08-28 09:32 | USCV_ITS ---
GregoryMark barrett Age: 77 Gender: M : 1945 Exam Date: 08/28/2022 09:54 Ordering Phys: Sona Espitia MD Technologist: CT Exam Location: [facility] [place] Indication: stroke Risk Factors: Previous Vascular Surgery: Right Brachial BP: / Left Brachial BP: / Right Left Velocity (cm/s) Spectral Plaque Velocity (cm/s) Spectral Plaque Syst/Diast Broadening Syst/Diast Broadening 76.00/ 15.90 Prox CCA 118.30/ 21.00 73.80/ 16.30 Mid CCA 83.80 / 18.70 75.00/ 14.10 Distal CCA 66.00 / 13.70 50.30/ 12.90 Prox ICA 59.50 / 15.60 69.70/ 19.50 Mid ICA 58.00 / 13.60 82.40/ 20.60 Distal ICA 68.80 / 14.90 95.70 ECA 92.50 1.08 ICA/CCA 0.58 Antegrade Vertebral Antegrade 43.60/ 13.70 cm/s 30.60/ 8.30 cm/s Tri Subclavian Tri 84.60 99.60 CONCLUSIONS Right ICA stenosis <50%. Mild atheromatous plaque right carotid bulb/ICA. Left ICA stenosis <50%. Mild atheromatous plaque left carotid bulb/ICA. Normal antegrade Doppler flow noted in the right vertebral artery. Normal antegrade Doppler flow noted in the left vertebral artery. Mingo Alfredo MD (Electronically Signed) Final Date: 28 August 2022 10:43 S
== END 2022-08-28 09:26 | disposition home or self-care (01) ==
PROVIDERS: PCP Family Medicine; Visit Provider Family Medicine
DX: R42 Dizziness and giddiness (principal); I10 Essential (primary) hypertension; Z86.73 Personal history of transient ischemic attack (TIA), and cerebral infarction without residual deficits; I67.2 Cerebral atherosclerosis; I65.23 Occlusion and stenosis of bilateral carotid arteries
CPT/HCPCS: 70450; 93880

== ENCOUNTER 2023-01-04 02:57 | Emergency (ER) | payer OTHER, SELFPAY ==
[2023-01-04 03:02] VITALS: BP 129/88; PULSE 107; RESP 18; TEMP 36.6; O2SAT 97
--- NOTE | 2023-01-04 03:29 | ECG_ITS ---
[facility] Test Date: 2023-01-04 Pat Name: Mark Noble Department: Room: Gender: Male Research Development Manager: : 1945 Requested By: Luis Aceves Order Number: [id number] Edi MD: Amanda Carmona M.D. Measurements Intervals [place] Rate: 81 P: 49 DE: 136 QRS: 41 QRSD: 109 T: 37 QT: 389 QTc: 454 Interpretive Statements SINUS RHYTHM Compared to ECG 04/29/2020 06:33:25 Sinus arrhythmia no longer present Incomplete right bundle-branch block no longer present Electronically Signed On 01-04-2023 15:36:16 SURFACE SHIP USW SUPERVISOR by Amanda Carmona M.D. [id number]
--- NOTE | 2023-01-04 03:30 | W.ED.ANXIETY ---
HPI - Anxiety General: Chief Complaint: Anxiety Stated Complaint: MHE Time Seen by Provider: 01/04/23 03:12 History of Present Illness: 77-year-old male who reports a history of anxiety. He says he has been experiencing a fever, an irrational fear for the past day or so. He says that he feels as if his heart is beating fast. He is unable to sleep. If he concentrates, he states that he can control his anxiety, but notes this is difficult to do all the time. He has not taken any medication for this, as he does not have any. He notes that he used to be on alprazolam, but is not anymore. He denies suicidal or homicidal ideation. He denies other recent illness. He denies chest discomfort, fever, cough, vomiting. He drove himself to the ER. At first he states that he lives alone, but then states that his brother lives in the basement. Associated symptoms: Deny chest pain, chills, confusion, fever(s), headache(s), nausea, palpitations or vomiting Review of Systems Const: Denies: fever(s), chills or body aches Eyes: Denies: change in vision Card: Denies: chest pain or palpitations Resp: Denies: dyspnea, productive cough, non-productive cough or wheezing GI: Denies: abdominal pain, nausea, vomiting, diarrhea or hematochezia Skin/Breast: Denies: rash Neuro: Denies: headache(s), weakness in extremities, dizziness or confusion Psych: Reports: anxiety [facility] ED PFSH: Medical History History of IBS Hypertension Surgical History S/P cholecystectomy Social History Smoking and tobacco/nicotine status: former use of tobacco/nicotine Physical Exam Const: COMMON NORMALS: no acute distress GENERAL APPEARANCE: cooperative and anxious; not ill appearing and not frail appearing ORIENTATION/CONSCIOUSNESS: Yes awake HENMT: COMMON NORMALS: normocephalic, atraumatic and Normal external nose present HEAD & SCALP: normocephalic and atraumatic FACE & SINUS: normal facial exam and face symmetric NOSE: Normal external nose present Eye: COMMON NORMALS: Equal, round and reactive pupils present and EOMs intact bilaterally PUPIL: Yes Equal, round and reactive pupils present Neck/C-Spine: GENERAL: Yes trachea midline Chest: CHEST: Yes Symmetrical chest wall rise Resp: COMMON NORMALS: normal respiratory effort, No retractions, No use of accessory muscles and clear to auscultation bilaterally AUSCULTATION: clear to auscultation bilaterally Cardio: COMMON NORMALS: regular rate and regular rhythm RATE: regular rate RHYTHM: regular rhythm GI: COMMON NORMALS: Normal to inspection, nondistended, normoactive bowel sounds present Extremity: COMMON NORMALS: no pedal edema Neuro: KUMAR COMA SCALE: document GCS findings Kumar coma scale eye opening: Spontaneous Auberry coma scale verbal response: Orientated Auberry coma scale motor response: Obey commands Kumar coma scale total score: 15 SENSORY EXAM: Yes extremities (intact) Psych: ACTIVITY/MOTOR BEHAVIOR: Yes appropriate eye contact SPEECH: Yes rapid and Yes Pressured speech present MOOD & AFFECT: Yes anxious THOUGHT PROCESS: Circumstantial thought process present and disorganized ATTENTION/CONCENTRATION: Yes attention grossly intact and Yes concentration grossly intact MEMORY/COGNITION: Yes memory grossly intact and Yes cognition grossly intact INSIGHT: Fair insight present (Psych) JUDGEMENT: Fair judgement present (Psych) Skin: COMMON NORMALS: no rashes or lesions noted GENERAL SKIN EXAM: no rashes or lesions noted Course Vital Signs: Vital signs: Vital Signs Temperature 97.9 F 01/04/23 03:02 Pulse Rate 98 01/04/23 04:01 Respiratory Rate 18 01/04/23 03:02 Blood Pressure 115/73 01/04/23 04:01 Pulse Oximetry 98 01/04/23 04:01 Oxygen Delivery Me thod Room Air 01/04/23 03:02 MDM - Anxiety Medical Decision Making The patient's EKG shows a sinus rhythm with a rate of 80, normal axis, normal intervals, no acute ST wave changes. His blood pressure is 129/88. Saturations are 97% on room air. He does have pressured speech, and his thoughts are a bit disorganized. He is in no way homicidal or suicidal. I offered treatment for anxiety/kerry with medication. He has declined. If he does not wish further treatment, he will be allowed discharge. No radiology studies performed this visit Discharge Plan Discharge Patient Disposition: Home Clinical Impression: Acute anxiety Condition: Stable Prescriptions: No Action lactulose 20 gram packet 20 gm PO DAILY PRN (Reason: constipation) Qty: 30 0RF cyclobenzaprine 10 mg tablet 10 mg PO TID Qty: 9 0RF amlodipine 10 mg tablet 10 mg PO DAILY Qty: 7 1RF Discharge Orders: Discharge ED (Routine); Ordered 01/04/23 Ordered By: Luis Belcher Referrals: Sona Espitia MD [Primary Care Provider] - 4-7 days Patient Instructions: Anxiety (ED) Activity Restrictions/Additional Instructions: Return for significant chest discomfort, syncope or passing out, thoughts or wishes to harm yourself or anyone else, any other symptoms that are concerning to you. See your doctor next week. Coding Level of Care Code ED Cattle Sorter for Zachary Sawyer
[2023-01-04 04:01] VITALS: BP 115/73; PULSE 98; O2SAT 98
== END 2023-01-04 04:01 | disposition home or self-care (01) ==
PROVIDERS: Emergency Provider Emergency Medicine; PCP Family Medicine
DX: F41.9 Anxiety disorder, unspecified (principal); I10 Essential (primary) hypertension; Z87.891 Personal history of nicotine dependence
CPT/HCPCS: 93005; 99283

== ENCOUNTER 2023-06-16 22:31 | Emergency (ER) | payer OTHER, SELFPAY ==
[2023-06-16 22:36] VITALS: BP 180/100; PULSE 81; TEMP 36.5; O2SAT 96; BMI 33.3
--- NOTE | 2023-06-16 22:44 | XRR_ITS ---
PROCEDURE INFORMATION: Exam: XR Chest Exam date and time: 06/16/2023 11:02 PM Age: 77 years old Clinical indication: Other: Arrythmia TECHNIQUE: Imaging protocol: Radiologic exam of the chest. Views: 1 view. COMPARISON: CR XR chest 1V portable [id number] 04/29/2020 7:44 AM FINDINGS: Lungs: Lungs are clear. Pleural spaces: No pleural effusion. No pneumothorax. Heart/Mediastinum: Stable cardiomediastinal silhouette with ectasia and tortuosity of the thoracic aorta. Bones/joints: No acute osseous abnormality. XR/XR chest 1V portable [id number] IMPRESSION: No acute findings.
--- NOTE | 2023-06-16 22:45 | ECG_ITS ---
[facility] Test Date: 2023-06-16 Pat Name: Mark Noble Department: Room: Gender: Male Science Consultant: : 1945 Requested By: Alex Fitzgerald Order Number: [id number] Edi MD: Monico López M.D. Measurements Intervals [place] Rate: 80 P: 15 [place]: 155 QRS: -5 QRSD: 109 T: 28 QT: 366 QTc: 425 Interpretive Statements SINUS RHYTHM POSSIBLE LEFT ATRIAL ENLARGEMENT [-0.1mV P-WAVE IN V1/V2] LOW QRS VOLTAGE IN PRECORDIAL LEADS [QRS DEFLECTION < 1.0 mV IN CHEST LEADS] INCOMPLETE RIGHT BUNDLE BRANCH BLOCK [90+ ms QRS DURATION, TERMINAL R IN V1/V2, 40+ ms S IN I/aVL/V4/V5/V6] Compared to ECG 01/04/2023 03:29:42 Low QRS voltage now present Incomplete right bundle-branch block now present Electronically Signed On 06-17-2023 17:20:07 CDT by Monico López M.D. [id number]
[2023-06-16 23:14] LABS: Basophils % 0.7 %; Eosinophils # 0.2 10^3/uL (0.0-0.8); Eosinophils % 3.9 %; Hematocrit 45.4 % (37-53); Lymphocytes # 1.7 10^3/uL (0.8-4.8); Lymphocytes % 28.6 %; Mean Corpuscular HGB Conc 34.6 g/dL (30-55); Mean Corpuscular Hemoglobin 31.8 pg (27-33); Mean Corpuscular Volume 91.9 fl (82-101); Mean Platelet Volume 10.7 fL (7.4-10.4); Monocytes # 0.6 10^3/uL (0.2-0.9); Monocytes % 10.4 %; Neutrophils # 3.35 10^3/uL (1.8-7.7); Neutrophils % 56.2 %; Nucleated Red Blood Cells % 0 %; Platelet Count 204 10^3/cmm (157-399); Red Blood Count 4.94 10^6/uL (3.85-5.65); Red Cell Distribution Width 13.6 % (12.1-15.1); White Blood Count 5.95 10^3/uL (3.29-11.43)
[2023-06-16 23:31] LABS: Troponin(5th) Baseline 10 ng/L (0-15)
[2023-06-16 23:41] LABS: Alanine Aminotransferase 18 U/L (0-41); Albumin Level 4.1 g/dL (3.5-5.2); Alkaline Phosphatase 106 U/L (40-130); Anion Gap 13.7 (5-19); Aspartate Amino Transferase 19 U/L (0-40); Blood Urea Nitrogen 17 mg/dL (8-23); Calcium 9.3 mg/dL (8.5-10.5); Carbon Dioxide 24 mmol/L (22-29); Chloride 103 mmol/L (98-107); Creatinine Clr Calc Pharmacy 65.0553; Globulin 2.9 g/dL (1.3-4.6); Glucose 121 mg/dL (65-115); Magnesium 2.1 mg/dL (1.7-2.3); Osmolality Calculated 287 mOsm/kg (285-295); Potassium 3.7 mmol/L (3.5-5.1); Sodium 137 mmol/L (136-145); Thyroid Stimulating Hormone 3.63 uIU/mL (0.27-4.20); Total Bilirubin 1.1 mg/dL (0.15-1.2)
--- NOTE | 2023-06-17 00:17 | W.ED.ARRPALP ---
HPI - Arrhythmia/Palpitations General: Chief Complaint: Arrhythmia/Palpitations Stated Complaint: Arithmia Time Seen by Provider: 06/16/23 22:44 History of Present Illness: Patient presents to the ER with complaints of an arrhythmia showing up on his home blood pressure monitor yesterday. Patient states he was skipping about every fourth beat yesterday. Patient does not feel he is doing this today. Patient says he also sleepwalks and has accidentally taken too many vitamins during his episodes. He says this is because arrhythmias before also. Patient denies any problems at this moment other than high blood pressure. Review of Systems General: Reports: 10 or more systems reviewed and unremarkable except in HPI and below PFSH ED PFSH: Medical History History of IBS Hypertension Surgical History S/P cholecystectomy Social History Smoking and tobacco/nicotine status: former use of tobacco/nicotine Physical Exam Const: COMMON NORMALS: no acute distress, average body habitus, patient oriented x3, no limitations, healthy appearing, alert and well nourished HENMT: COMMON NORMALS: normocephalic, atraumatic, hearing grossly normal bilaterally, external ears normal, Normal external nose present, moist oral mucous membranes and oropharynx normal HEAD & SCALP: normocephalic and atraumatic NOSE: Normal external nose present EXTERNAL EAR: Yes external ears normal Eye: COMMON NORMALS: Equal, round and reactive pupils present, EOMs intact bilaterally, conjunctivae normal and no scleral icterus CONJUNCTIVA: Yes conjunctivae normal PUPIL: Yes Equal, round and reactive pupils present Neck/C-Spine: COMMON NORMALS: full ROM, no lymphadenopathy, supple, no meningeal signs, no JVD and Thyroid normal THYROID: Thyroid normal Chest: COMMONS NORMALS: normal inspection of the chest and normal palpation of entire chest wall Resp: COMMON NORMALS: normal respiratory effort, No retractions, No use of accessory muscles and clear to auscultation bilaterally AUSCULTATION: clear to auscultation bilaterally Cardio: COMMON NORMALS: no JVD, regular rate, regular rhythm, S1 normal heart sound present, S2 normal heart sound present, No gallops present (Cardio), No clicks present (Cardio), No murmurs present (Cardio) and No rub (Cardio) RATE: regular rate RHYTHM: regular rhythm HEART SOUNDS: S1 normal heart sound present and S2 normal heart sound present GI: COMMON NORMALS: Normal to inspection, nondistended, normoactive bowel sounds present, Soft to palpation, non-tender, No hepatosplenomegaly present and no masses PALPATION: Yes Soft to palpation and Yes No hepatosplenomegaly present Neuro: COMMON NORMALS: patient oriented x3 SENSORIUM/ORIENTATION: Yes alert MENINGEAL SIGNS: Yes no meningeal signs Course Vital Signs: Vital signs: Vital Signs Temperature 97.7 F 06/17/23 00:25 Pulse Rate 81 06/17/23 00:25 Respiratory Rate 16 06/17/23 00:25 Blood Pressure 128/82 06/17/23 00:25 Pulse Oximetry 96 06/17/23 00:25 Oxygen Delivery Me thod Room Air 06/16/23 22:36 MDM - Arrhythmia/Palpitations Medical Decision Making Lab work was obtained as well as EKG and chest x-ray, during the waiting for these results patient decided he wanted to leave. Patient left AMA before the complete workup was obtained. Lab Data 06/16/23 23:06 06/16/23 23:06 Radiology Impressions Chest X-Ray 06/16/23 22:44 IMPRESSION: No acute findings. Laboratory Results WBC 5.95 10^3/uL (3.29-11.43) 06/16/23 23:06 RBC 4.94 10^6/uL (3.85-5.65) 06/16/23 23:06 Hgb 15.70 g/dL (11.27-16.99) 06/16/23 23:06 Hct 45.4 % (37-53) 06/16/23 23:06 MCV 91.9 fl (82-101) 06/16/23 23:06 MCH 31.8 pg (27-33) 06/16/23 23:06 MCHC 34.6 g/dL (30-55) 06/16/23 23:06 RDW 13.6 % (12.1-15.1) 06/16/23 23:06 Plt Count 204 10^3/cmm (157-399) 06/16/23 23:06 MPV 10.7 fL (7.4-10.4) H 06/16/23 23:06 Neut % (Auto) 56.2 % 06/16/23 23:06 Lymph % (Auto) 28.6 % 06/16/23 23:06 [place] % (Auto) 10.4 % 06/16/23 23:06 Eos % (Auto) 3.9 % 06/16/23 23:06 Baso % (Auto) 0.7 % 06/16/23 23:06 Neut # (Auto) 3.35 10^3/uL (1.8-7.7) 06/16/23 23:06 Lymph # (Auto) 1.7 10^3/uL (0.8-4.8) 06/16/23 23:06 [place] # (Auto) 0.6 10^3/uL (0.2-0.9) 06/16/23 23:06 Eos # (Auto) 0.2 10^3/uL (0.0-0.8) 06/16/23 23:06 Baso # (Auto) 0.0 10^3/uL (0.0-0.1) 06/16/23 23:06 Nucleated RBC % (auto) 0 % 06/16/23 23:06 Nucleated RBCs # 0.0 /100WBC 06/16/23 23:06 Sodium 137 mmol/L (136-145) 06/16/23 23:06 Potassium 3.7 mmol/L (3.5-5.1) 06/16/23 23:06 Chloride 103 mmol/L (98-107) 06/16/23 23:06 Carbon Dioxide 24 mmol/L (22-29) 06/16/23 23:06 Anion Gap 13.7 (5-19) 06/16/23 23:06 BUN 17 mg/dL (8-23) 06/16/23 23:06 Creatinine 1.0 mg/dL (0.7-1.2) 06/16/23 23:06 GFR Calculation Not Reportable 06/16/23 23:06 Glucose 121 mg/dL (65-115) H 06/16/23 23:06 Calculated Osmolality 287 mOsm/kg (285-295) 06/16/23 23:06 Calcium 9.3 mg/dL (8.5-10.5) 06/16/23 23:06 Magnesium 2.1 mg/dL (1.7-2.3) 06/16/23 23:06 Total Bilirubin 1.1 mg/dL (0.15-1.2) 06/16/23 23:06 AST 19 U/L (0-40) 06/16/23 23:06 ALT 18 U/L (0-41) 06/16/23 23:06 Alkaline Phosphatase 106 U/L (40-130) 06/16/23 23:06 Troponin T Baseline 10 ng/L (0-15) 06/16/23 23:06 Total Protein 7.0 g/dL (6.6-8.7) 06/16/23 23:06 Albumin 4.1 g/dL (3.5-5.2) 06/16/23 23:06 Globulin 2.9 g/dL (1.3-4.6) 06/16/23 23:06 TSH 3.63 uIU/mL (0.27-4.20) 06/16/23 23:06 All radiology interpretation(s) finalized by discharge Discharge Plan Discharge Patient Disposition: Left Against Medical Advice Clinical Impression: Left against medical advice Arrhythmia Qualifiers: Arrhythmia type: unspecified cardiac arrhythmia Qualified Code(s): I49.9 - Cardiac arrhythmia, unspecified Condition: Stable Prescriptions: No Action lactulose 20 gram packet 20 gm PO DAILY PRN (Reason: constipation) Qty: 30 0RF cyclobenzaprine 10 mg tablet 10 mg PO TID Qty: 9 0RF amlodipine 10 mg tablet 10 mg PO DAILY Qty: 7 1RF Referrals: Sona Espitia MD [Primary Care Provider] - 1 week Patient Instructions: Against Medical Advice (ED) Activity Restrictions/Additional Instructions: You are leaving before your lab work is came back. This is thought to be AGAINST MEDICAL ADVICE because we are unable to offer a complete assessment at this time. This puts you at high risk for problems and symptoms. If you change your mind please feel free to return to the ER. Otherwise follow-up with your family practice physician within the next week for further evaluation testing. Coding Level of Care Code ED Cut Off Saw Set Up Operator for Zachary Sawyer
[2023-06-17 00:25] VITALS: BP 128/82; PULSE 81; RESP 16; TEMP 36.5; O2SAT 96
== END 2023-06-17 00:27 | disposition left against medical advice (07) ==
PROVIDERS: Emergency Provider Emergency Medicine; PCP Family Medicine
DX: I49.9 Cardiac arrhythmia, unspecified (principal); Z53.29 Procedure and treatment not carried out because of patient's decision for other reasons; I10 Essential (primary) hypertension; Z87.891 Personal history of nicotine dependence
CPT/HCPCS: 71045; 80053; 83735; 84443; 84484; 85025; 93005; 99285

== ENCOUNTER 2023-06-19 06:27 | Emergency (ER) | payer OTHER, SELFPAY ==
[2023-06-19 06:31] VITALS: BP 147/94; PULSE 84; RESP 18; TEMP 36.6; O2SAT 95
--- NOTE | 2023-06-19 06:31 | ECG_ITS ---
[facility] Test Date: 2023-06-19 Pat Name: Mark Noble Department: Room: Gender: Male Physicist Astrophysics: : 1945 Requested By: Benja Salinas Order Number: [id number] Edi MD: Amanda Carmona M.D. Measurements Intervals [place] Rate: 87 P: 9 [place]: 149 QRS: -11 QRSD: 105 T: 5 QT: 381 QTc: 460 Interpretive Statements SINUS RHYTHM INCOMPLETE RIGHT BUNDLE BRANCH BLOCK [90+ ms QRS DURATION, TERMINAL R IN V1/V2, 40+ ms S IN I/aVL/V4/V5/V6] MINIMAL VOLTAGE CRITERIA FOR LVH, CONSIDER NORMAL VARIANT [MEETS CRITERIA IN ONE OF: R(aVL), S(V1), R(V5), R(V5/V6)+S(V1)] Compared to ECG 06/16/2023 22:40:07 No significant changes Electronically Signed On 06-19-2023 22:59:52 CDT by Amanda Carmona M.D. [id number]
--- NOTE | 2023-06-19 06:41 | XR_ITS ---
WS: [id number] XR shoulder RT min 2V* [id number] REASON FOR EXAM: pain FINDINGS: No acute fracture or focal bone lesion. The acromioclavicular joint space is intact and relatively well preserved. There is deformity of the distal clavicle compatible with old healed fracture. The glenohumeral joint is not optimally demonstrated but appears to be narrowed and there is subchond ral sclerosis in the glenoid and humeral head to moderate degree. No soft tissue abnormality. XR/XR shoulder RT min 2V* [id number] IMPRESSION: Moderate osteoarthritis of the glenohumeral joint with no acute abnormality not ed.
--- NOTE | 2023-06-19 06:41 | XRR_ITS ---
PROCEDURE INFORMATION: Exam: XR Chest Exam date and time: 06/19/2023 7:07 AM Age: 77 years old Clinical indication: Cough and dyspnea; Additional info: Dyspnea/cough TECHNIQUE: Imaging protocol: Radiologic exam of the chest. Views: 1 view. COMPARISON: CR (CHEST, ) 06/16/2023 11:02 PM FINDINGS: Lungs: Clear. Pleural spaces: No pleural effusion identified. Heart/Mediastinum: Cardiomediastinal silhouette is stable.. Bones/joints: No acute osseous abnormality identified. XR/XR chest 1V portable [id number] IMPRESSION: 1. No acute cardiopulmonary abnormality identified.
--- NOTE | 2023-06-19 06:42 | W.ED.EXTPRO ---
HPI - Extremity Problem General: Chief complaint: Extremity Injury, Upper Stated complaint: pain in right shoulder, n/v Time Seen by Provider: 06/19/23 06:40 Source: patient Mode of arrival: ambulatory History of Present Illness: 77-year-old male presents emergency room complaining of right shoulder pain right proximal humerus pain. He states it began couple of days ago he was seen 2 days ago with arrhythmias and palpitations there is no significant finding at that time. Patient states he gets nauseous with the pain. Patient denies any pain at this time he states all of his symptoms have completely resolved. He also adds that at 1 point he had shingles although he states this feels different. He denies any new or different rash. He has not taken anything for these symptoms. They have been intermittent. When I came to see him he states all of his symptoms have completely resolved and he has no further pain at this time MD Complaint: extremity pain Location: right and upper extremity Quality: sharp Radiation: distal Relieving factors: rest Exacerbating factors: nothing Associated symptoms: Reports myalgias; Deny chest pain, fever(s), rash or short of breath Review of Systems Const: Denies: fever(s) or chills Card: Denies: chest pain Resp: Denies: dyspnea GI: Denies: abdominal pain : Denies: dysuria, urinary frequency or urinary urgency Musc: Reports: extremity pain and joint pain; Denies: neck pain or back pain Skin/Breast: Denies: rash [facility] PFSH: Medical History History of IBS Hypertension Surgical History S/P cholecystectomy Social History Smoking and tobacco/nicotine status: former use of tobacco/nicotine Physical Exam Const: GENERAL APPEARANCE: cooperative and comfortable ORIENTATION/CONSCIOUSNESS: Yes awake, Yes oriented to person, Yes oriented to place and Yes oriented to time HENMT: COMMON NORMALS: normocephalic, atraumatic and hearing grossly normal bilaterally HEAD & SCALP: normocephalic and atraumatic Resp: COMMON NORMALS: normal respiratory effort, No retractions, No use of accessory muscles and clear to auscultation bilaterally AUSCULTATION: clear to auscultation bilaterally Cardio: COMMON NORMALS: regular rate, regular rhythm and No murmurs present (Cardio) RATE: regular rate RHYTHM: regular rhythm GI: COMMON NORMALS: Soft to palpation and No hepatosplenomegaly present AUSCULTATION: Yes normoactive bowel sounds PALPATION: Yes Soft to palpation, No Tenderness to palpation present (GI), No Guarding due to palpation present (GI) and Yes No hepatosplenomegaly present Extremity: COMMON NORMALS: normal to inspection, capillary refill normal, no clubbing, cyanosis or edema, no calf tenderness and no pedal edema Neuro: SENSORIUM/ORIENTATION: Yes oriented to person, Yes oriented to place and Yes oriented to time Skin: COMMON NORMALS: no rashes or lesions noted GENERAL SKIN EXAM: no rashes or lesions noted Course Vital Signs: Vital signs: Vital Signs Temperature 98 F 06/19/23 06:31 Pulse Rate 78 06/19/23 10:10 Respiratory Rate 18 06/19/23 06:31 Blood Pressure 147/94 06/19/23 06:31 Pulse Oximetry 93 06/19/23 10:10 MDM - Extremity (Nontraumatic) Medical Decision Making Patient states he is feeling fine now. He told me additional history he suspended himself in an attempt to do a pull-up a few days ago he think he overstretched his shoulder and that is what caused the discomfort there. We did get an EKG which was normal but he declined any further cardiac workup he states that his heart problems are due to his brain sending his heart the wrong signal. At this point we will go ahead and discharge patient home he declined any pain medications for the shoulder follow-up with his primary care doctor as needed Medical Records I reviewed the patient's medical records. Lab Data I reviewed the patient's lab results. 06/19/23 06:35 06/19/23 07:07 Radiology Impressions Chest X-Ray 06/19/23 06:41 IMPRESSION: 1. No acute cardiopulmonary abnormality identified. Shoulder X-Ray 06/19/23 06:41 IMPRESSION: Moderate osteoarthritis of the glenohumeral joint with no acute abnormality noted. Laboratory Results WBC 7.47 10^3/uL (3.29-11.43) 06/19/23 06:35 RBC 5.31 10^6/uL (3.85-5.65) 06/19/23 06:35 Hgb 16.90 g/dL (11.27-16.99) 06/19/23 06:35 Hct 47.3 % (37-53) 06/19/23 06:35 MCV 89.1 fl (82-101) 06/19/23 06:35 MCH 31.8 pg (27-33) 06/19/23 06:35 MCHC 35.7 g/dL (30-55) 06/19/23 06:35 RDW 13.5 % (12.1-15.1) 06/19/23 06:35 Plt Count 203 10^3/cmm (157-399) 06/19/23 06:35 MPV 11.1 fL (7.4-10.4) H 06/19/23 06:35 Neut % (Auto) 53.5 % 06/19/23 06:35 Lymph % (Auto) 30.8 % 06/19/23 06:35 [place] % (Auto) 11.0 % 06/19/23 06:35 Eos % (Auto) 3.6 % 06/19/23 06:35 Baso % (Auto) 0.8 % 06/19/23 06:35 Neut # (Auto) 4.00 10^3/uL (1.8-7.7) 06/19/23 06:35 Lymph # (Auto) 2.3 10^3/uL (0.8-4.8) 06/19/23 06:35 [place] # (Auto) 0.8 10^3/uL (0.2-0.9) 06/19/23 06:35 Eos # (Auto) 0.3 10^3/uL (0.0-0.8) 06/19/23 06:35 Baso # (Auto) 0.1 10^3/uL (0.0-0.1) 06/19/23 06:35 Nucleated RBC % (auto) 0 % 06/19/23 06:35 Nucleated RBCs # 0.0 /100WBC 06/19/23 06:35 Sodium 137 mmol/L (136-145) 06/19/23 07:07 Potassium 4.0 mmol/L (3.5-5.1) 06/19/23 07:07 Chloride 103 mmol/L (98-107) 06/19/23 07:07 Carbon Dioxide 24 mmol/L (22-29) 06/19/23 07:07 Anion Gap 14.0 (5-19) 06/19/23 07:07 BUN 15 mg/dL (8-23) 06/19/23 07:07 Creatinine 0.7 mg/dL (0.7-1.2) 06/19/23 07:07 GFR Calculation Not Reportable 06/19/23 07:07 Glucose 116 mg/dL (65-115) H 06/19/23 07:07 Calculated Osmolality 286 mOsm/kg (285-295) 06/19/23 07:07 Calcium 9.4 mg/dL (8.5-10.5) 06/19/23 07:07 Total Bilirubin 1.2 mg/dL (0.15-1.2) 06/19/23 07:07 AST 19 U/L (0-40) 06/19/23 07:07 ALT 18 U/L (0-41) 06/19/23 07:07 Alkaline Phosphatase 105 U/L (40-130) 06/19/23 07:07 Troponin T Baseline 9 ng/L (0-15) 06/19/23 07:07 Troponin T 120 Minute Cancelled 06/19/23 08:23 Delta Troponin T Cancelled 06/19/23 08:23 Total Protein 7.5 g/dL (6.6-8.7) 06/19/23 07:07 Albumin 4.3 g/dL (3.5-5.2) 06/19/23 07:07 Globulin 3.2 g/dL (1.3-4.6) 06/19/23 07:07 Urine Color Yellow (Yellow) 06/19/23 07:21 Urine Appearance Hazy (CLEAR) A 06/19/23 07:21 Urine pH 7 (5-7) 06/19/23 07:21 Ur Specific [place] 1.010 (1.005-1.030) 06/19/23 07:21 Urine Protein Neg (Negative) 06/19/23 07:21 Urine Glucose (UA) Norm (Normal) 06/19/23 07:21 Urine Ketones Negative (Negative) 06/19/23 07:21 Urine Blood Neg (Negative) 06/19/23 07:21 Urine Nitrate Negative (Negative) 06/19/23 07:21 Urine Bilirubin Neg (Negative) 06/19/23 07:21 Urine Urobilinogen Neg mg/dL (Negative) 06/19/23 07:21 Ur Leukocyte Esterase Negative (Negative) 06/19/23 07:21 Urine RBC None /hpf (0-2) 06/19/23 07:21 Urine WBC Rare /hpf (0-5) 06/19/23 07:21 Ur Squamous Epith Cells Rare /hpf (0-5) 06/19/23 07:21 Amorphous Sediment 2+ /hpf 06/19/23 07:21 Urine Bacteria Trace /hpf (NONE) 06/19/23 07:21 Urine Mucus 1+ /hpf 06/19/23 07:21 All radiology interpretation(s) finalized by discharge Discharge Plan Discharge Patient Disposition: Home Clinical Impression: Right shoulder strain, Atypical chest pain Condition: Stable Prescriptions: No Action Glucosamine 500 mg Tablet 500 mg PO DAILY Rx Instructions: administer with a meal Krill Oil ([place] 3 and 6) 1,500-165-67.5 mg Capsule 1 cap PO DAILY amlodipine 10 mg tablet 10 mg PO DAILY Qty: 7 1RF Discharge Orders: Discharge ED (Routine); Ordered 06/19/23 Ordered By: Benja Guzman Referrals: Sona Espitia MD [Primary Care Provider] - Discharge Diet: Usual diet Discharge Activity: Resume usual activity Patient Instructions: Opioid Safety, Pain Management Activity Restrictions/Additional Instructions: Thank you for choosing [facility] for your healthcare needs today. Please realize this is an emergency room and that we are providing you with a medical screening exam and this may not be complete and all inclusive of all the testing and or work up that you may need to determine your ailment or severity of your illness. It is very important that you follow up as instructed or that you return to the Emergency Department should you have concerns or if your condition changes or worsens in any way. You are seen today with complaint of shoulder pain and right-sided chest discomfort. Your EKG did not show any acute changes x-ray of your shoulder showed arthritic changes but no acute changes. Will discharge you home with [id number] medications, you have declined offers for prescription meds. I do recommend you follow-up with your primary care doctor. Return to the emergency room if any worsening chest discomfort. The workup to evaluate your heart was limited since you declined further testing. Coding Level of Care Code ED Student Financial Aid Manager for Zachary Sawyer
[2023-06-19 06:52] LABS: Basophils # 0.1 10^3/uL (0.0-0.1); Basophils % 0.8 %; Eosinophils # 0.3 10^3/uL (0.0-0.8); Eosinophils % 3.6 %; Hematocrit 47.3 % (37-53); Lymphocytes # 2.3 10^3/uL (0.8-4.8); Lymphocytes % 30.8 %; Mean Corpuscular HGB Conc 35.7 g/dL (30-55); Mean Corpuscular Hemoglobin 31.8 pg (27-33); Mean Corpuscular Volume 89.1 fl (82-101); Mean Platelet Volume 11.1 fL (7.4-10.4); Monocytes # 0.8 10^3/uL (0.2-0.9); Neutrophils % 53.5 %; Nucleated Red Blood Cells % 0 %; Platelet Count 203 10^3/cmm (157-399); Red Blood Count 5.31 10^6/uL (3.85-5.65); Red Cell Distribution Width 13.5 % (12.1-15.1); White Blood Count 7.47 10^3/uL (3.29-11.43)
[2023-06-19 07:33] LABS: Alanine Aminotransferase 18 U/L (0-41); Albumin Level 4.3 g/dL (3.5-5.2); Alkaline Phosphatase 105 U/L (40-130); Aspartate Amino Transferase 19 U/L (0-40); Blood Urea Nitrogen 15 mg/dL (8-23); Calcium 9.4 mg/dL (8.5-10.5); Carbon Dioxide 24 mmol/L (22-29); Chloride 103 mmol/L (98-107); Creatinine Clr Calc Pharmacy 81.3191; Globulin 3.2 g/dL (1.3-4.6); Glucose 116 mg/dL (65-115); Osmolality Calculated 286 mOsm/kg (285-295); Sodium 137 mmol/L (136-145); Total Bilirubin 1.2 mg/dL (0.15-1.2); Total Protein 7.5 g/dL (6.6-8.7)
[2023-06-19 07:34] LABS: Troponin(5th) Baseline 9 ng/L (0-15)
[2023-06-19 07:58] LABS: Add Urine Microscopic? YES; Amorphous Sediment Urine 2+ /hpf; Bacteria Urine TRACE /hpf; Bilirubin Urine Neg (Negative); Blood Urine Neg (Negative); Glucose Urine UA Norm (Normal); Ketones Urine Negative (Negative); Leukocyte Esterase Urine Negative (Negative); Mucus Urine 1+ /hpf; Nitrate Urine Negative (Negative); Protein Urine Neg (Negative); Squamous Epithelial Cell Urine RARE /hpf (0-5); Urine Appearance Hazy (CLEAR); Urine Color Yellow (Yellow); Urobilinogen Urine Neg (Negative); WBC Urine RARE /hpf (0-5); pH Urine 7 (5-7)
[2023-06-19 07:59] LABS: Add Urine Culture? No
--- NOTE | 2023-06-19 09:08 | PC.NURSE ---
pt declined 2hr troponin, stated he felt fine and would like to go home
--- NOTE | 2023-06-19 09:45 | PC.NURSE ---
this nurse asked pt if we could continue work up, PT stated I dont feel its necessary. notified
[2023-06-19 10:10] VITALS: PULSE 78; O2SAT 93
== END 2023-06-19 10:12 | disposition home or self-care (01) ==
PROVIDERS: Emergency Provider Family Medicine; PCP Family Medicine
DX: S46.911A Strain of unspecified muscle, fascia and tendon at shoulder and upper arm level, right arm, initial encounter (principal); R07.89 Other chest pain; I10 Essential (primary) hypertension; Z87.891 Personal history of nicotine dependence; X58.XXXA Exposure to other specified factors, initial encounter
CPT/HCPCS: 36415; 71045; 73030; 80053; 81001; 84484; 85025; 93005; 99285

== ENCOUNTER 2023-08-11 04:55 | Emergency (ER) | payer OTHER, SELFPAY ==
--- NOTE | 2023-08-11 04:59 | ECG_ITS ---
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 Measurements Intervals [place] Rate: 87 P: 37 HI: 149 QRS: 12 QRSD: 114 T: 29 QT: 389 QTc: 469 Interpretive Statements SINUS RHYTHM POSSIBLE LEFT ATRIAL ENLARGEMENT [-0.1mV P-WAVE IN V1/V2] MODERATE INTRAVENTRICULAR CONDUCTION DELAY [110+ ms QRS DURATION] Compared to ECG 06/19/2023 06:31:48 Intraventricular conduction delay now present Incomplete right bundle-branch block no longer present Electronically Signed On 08-11-2023 14:47:01 CDT by Donal Grimm M.D. [id number]
[2023-08-11 05:01] VITALS: BP 169/100; PULSE 92; RESP 17; TEMP 36.6; O2SAT 98; BMI 30.7
[2023-08-11 05:16] VITALS: BP 169/100; PULSE 88; RESP 18; O2SAT 96
--- NOTE | 2023-08-11 05:28 | CTR_ITS ---
PROCEDURE INFORMATION: Exam: CT Head Without Contrast Exam date and time: 08/11/2023 5:42 AM Age: 77 years old Clinical indication: Weakness, extremity; Bilateral; Patient HX: C/O RT upper and left lower extremity weakness. ; Additional info: R arm L leg weakness, palpitations TECHNIQUE: Imaging protocol: Computed tomography of the head without contrast. Radiation optimization: All CT scans at this facility use at least one of these dose optimization techniques: automated exposure control; mA and/or kV adjustment per patient size (includes targeted exams where dose is matched to clinical indication); or iterative reconstruction. COMPARISON: CT head wo con* [id number] 08/28/2022 9:37 AM RADIATION DOSE METRICS: Total DLP (mGy-cm): 1041.83 FINDINGS: Brain: There is decreased attenuation within the periventricular white matter suspicious for chronic microvascular ischemic changes. There is no evidence of acute intracranial hemorrhage. There is no significant mass effect noted. There is ectasia of the intracranial vasculature again noted. There are moderate atherosclerotic vascular calcifications of the distal internal carotid arteries and distal left vertebral artery. Cerebral ventricles: No ventriculomegaly. Paranasal sinuses: There is mild mucosal thickening within the ethmoid sinuses Mastoid air cells: Visualized mastoid air cells are well aerated. Bones: Unremarkable. No acute fracture. Soft tissues: Unremarkable. CT/CT head wo con* [id number] IMPRESSION: No acute intracranial abnormality. Chronic microvascular ischemic changes
--- NOTE | 2023-08-11 05:30 | W.ED.NEUROSD ---
Documented by User: Luis Belcher DO 08/11/23 06:14 HPI - Neuro Symptoms/Deficit General: Chief Complaint: Neuro Symptoms/Deficit Stated Complaint: right arm left leg weakness. bk pain, heart irregu Time Seen by Provider: 08/11/23 05:09 History of Present Illness: 77-year-old male with no prior history of coronary disease. He does not take medication. He presents with a conglomeration of symptoms. He noticed that several hours ago, he was having palpitations, and his heart rate felt irregular. His gave him a notification of an irregular heartbeat. While this was going on, he noticed that his arm was somewhat weak on the right. He could slate picker a 10 pound dumbbell with the left side, but not the right. He also noticed that his left lower extremity was more weak than the right side. He states that his toes have been going numb intermittently. The symptoms are all of unknown duration. He denies chest pain. Denies significant shortness of breath. Associated symptoms: Reports nausea; Deny chest pain, headache(s) or vomiting Review of Systems Const: Denies: fever(s) Eyes: Denies: change in vision ENMT: Denies: throat pain Card: Reports: palpitations and irregular heart rhythm; Denies: chest pain Resp: Reports: dyspnea; Denies: productive cough or non-productive cough GI: Reports: nausea; Denies: abdominal pain or vomiting : Reports: urinary frequency Skin/Breast: Denies: rash Neuro: Reports: numbness in extremities and weakness in extremities; Denies: headache(s) [facility] ED PFSH: Medical History History of IBS Hypertension Surgical History S/P cholecystectomy Social History Smoking and tobacco/nicotine status: former use of tobacco/nicotine NIH stroke score NIHSS: Level Of Consciousness - 1a: 0 Level Of Consciousness Questions - 1b: Both Correct Level Of Consciousness Commands - 1c: Both Correct Best Gaze - 2: Normal Visual Correa - 3: No Visual Loss Facial Palsy - 4: Normal Motor Arm Right - 5: No Drift Motor Arm Left - 5: No Drift Motor Leg Right - 6: No Drift Motor Leg Left - 6: No Drift Limb Ataxia - 7: Absent Sensory - 8: Normal Best Language - 9: No Aphasia Dysarthia - 10: Normal Extinction And Inattention - 11: 0 Score: Total Score: 0 Physical Exam Const: COMMON NORMALS: no acute distress GENERAL APPEARANCE: cooperative; not ill appearing and not frail appearing HENMT: COMMON NORMALS: normocephalic, atraumatic and Normal external nose present HEAD & SCALP: normocephalic and atraumatic FACE & SINUS: normal facial exam and face symmetric NOSE: Normal external nose present Eye: COMMON NORMALS: Equal, round and reactive pupils present and EOMs intact bilaterally PUPIL: Yes Equal, round and reactive pupils present Neck/C-Spine: GENERAL: Yes trachea midline Chest: CHEST: Yes Symmetrical chest wall rise Resp: COMMON NORMALS: normal respiratory effort, No retractions, No use of accessory muscles and clear to auscultation bilaterally AUSCULTATION: clear to auscultation bilaterally Cardio: COMMON NORMALS: regular rate and regular rhythm RATE: regular rate RHYTHM: regular rhythm GI: COMMON NORMALS: Normal to inspection, nondistended, normoactive bowel sounds present Extremity: COMMON NORMALS: no pedal edema Neuro: ÁNGELA COMA SCALE: document GCS findings [place] coma scale eye opening: Spontaneous [place] coma scale verbal response: Orientated [place] coma scale motor response: Obey commands [place] coma scale total score: 15 SENSORY EXAM: Yes extremities (intact) Psych: COMMON NORMALS: speech normal SPEECH: Yes normal speech Skin: COMMON NORMALS: no rashes or lesions noted GENERAL SKIN EXAM: no rashes or lesions noted Course Vital Signs: Vital signs: Vital Signs Temperature 97.8 F 08/11/23 05:01 Pulse Rate 88 08/11/23 05:16 Respiratory Rate 18 08/11/23 05:16 Blood Pressure 169/100 08/11/23 05:16 Pulse Oximetry 96 08/11/23 05:16 Oxygen Delivery Me thod Room Air 08/11/23 05:16 MDM - Neuro Symptoms/Deficit Medical Decision Making 77-year-old patient with palpitations. He is sinus on the monitor. EKG shows a sinus rhythm with a rate of 87, normal axis and an interventricular conduction delay with QRS of 114. No acute ST wave changes. CBC is normal. Other laboratory is pending. Head CT is pending. He will be checked out at shift change. Lab Data 08/11/23 06:00 08/11/23 06:00 Laboratory Results WBC 5.61 10^3/uL (3.29-11.43) 08/11/23 06:00 RBC 5.29 10^6/uL (3.85-5.65) 08/11/23 06:00 Hgb 16.60 g/dL (11.27-16.99) 08/11/23 06:00 Hct 48.1 % (37-53) 08/11/23 06:00 MCV 90.9 fl (82-101) 08/11/23 06:00 MCH 31.4 pg (27-33) 08/11/23 06:00 MCHC 34.5 g/dL (30-55) 08/11/23 06:00 RDW 13.2 % (12.1-15.1) 08/11/23 06:00 Plt Count 195 10^3/cmm (157-399) 08/11/23 06:00 MPV 10.6 fL (7.4-10.4) H 08/11/23 06:00 Neut % (Auto) 58.3 % 08/11/23 06:00 Lymph % (Auto) 25.1 % 08/11/23 06:00 [place] % (Auto) 11.8 % 08/11/23 06:00 Eos % (Auto) 3.7 % 08/11/23 06:00 Baso % (Auto) 0.9 % 08/11/23 06:00 Neut # (Auto) 3.27 10^3/uL (1.8-7.7) 08/11/23 06:00 Lymph # (Auto) 1.4 10^3/uL (0.8-4.8) 08/11/23 06:00 [place] # (Auto) 0.7 10^3/uL (0.2-0.9) 08/11/23 06:00 Eos # (Auto) 0.2 10^3/uL (0.0-0.8) 08/11/23 06:00 Baso # (Auto) 0.1 10^3/uL (0.0-0.1) 08/11/23 06:00 Nucleated RBC % (auto) 0 % 08/11/23 06:00 Nucleated RBCs # 0.0 /100WBC 08/11/23 06:00 Sodium 140 mmol/L (136-145) 08/11/23 06:00 Potassium 3.9 mmol/L (3.5-5.1) 08/11/23 06:00 Chloride 102 mmol/L (98-107) 08/11/23 06:00 Carbon Dioxide 25 mmol/L (22-29) 08/11/23 06:00 Anion Gap 16.9 (5-19) 08/11/23 06:00 BUN 21 mg/dL (8-23) 08/11/23 06:00 Creatinine 0.8 mg/dL (0.7-1.2) 08/11/23 06:00 GFR Calculation Not Reportable 08/11/23 06:00 Glucose 111 mg/dL (65-115) 08/11/23 06:00 Calculated Osmolality 294 mOsm/kg (285-295) 08/11/23 06:00 Calcium 10.0 mg/dL (8.5-10.5) 08/11/23 06:00 Magnesium 2.2 mg/dL (1.7-2.3) 08/11/23 06:00 Total Bilirubin 1.3 mg/dL (0.15-1.2) H 08/11/23 06:00 AST 19 U/L (0-40) 08/11/23 06:00 ALT 17 U/L (0-41) 08/11/23 06:00 Alkaline Phosphatase 114 U/L (40-130) 08/11/23 06:00 Creatine Kinase 90 U/L (39-308) 08/11/23 06:00 Troponin T Baseline 10 ng/L (0-15) 08/11/23 06:00 NT-Pro-B Natriuret Pep < 36 pg/mL (0-450) 08/11/23 06:00 Total Protein 7.2 g/dL (6.6-8.7) 08/11/23 06:00 Albumin 4.6 g/dL (3.5-5.2) 08/11/23 06:00 Globulin 2.6 g/dL (1.3-4.6) 08/11/23 06:00 TSH 4.55 uIU/mL (0.27-4.20) H 08/11/23 06:00 Urine Color Yellow (Yellow) 08/11/23 06:10 Urine Appearance Clear (CLEAR) 08/11/23 06:10 Urine pH 7 (5-7) 08/11/23 06:10 Ur Specific [place] 1.005 (1.005-1.030) 08/11/23 06:10 Urine Protein Neg (Negative) 08/11/23 06:10 Urine Glucose (UA) Norm (Normal) 08/11/23 06:10 Urine Ketones Negative (Negative) 08/11/23 06:10 Urine Blood Neg (Negative) 08/11/23 06:10 Urine Nitrate Negative (Negative) 08/11/23 06:10 Urine Bilirubin Neg (Negative) 08/11/23 06:10 Urine Urobilinogen Neg mg/dL (Negative) 08/11/23 06:10 Ur Leukocyte Esterase Negative (Negative) 08/11/23 06:10 XR interpretation done by ED provider, pending radiology final review Discharge Plan Discharge Patient Disposition: Home Clinical Impression: Heart palpitations Condition: Stable Prescriptions: No Action Glucosamine 500 mg Tablet 500 mg PO DAILY Rx Instructions: administer with a meal Krill Oil ([place] 3 and 6) 1,500-165-67.5 mg Capsule 1 cap PO DAILY amlodipine 10 mg tablet 10 mg PO DAILY Qty: 7 1RF Discharge Orders: Discharge ED (Routine); Ordered 08/11/23 Ordered By: Maureen Eubanks Referrals: Sona Espitia MD [Primary Care Provider] - 4-7 days Discharge Diet: Usual diet Discharge Activity: Resume usual activity Patient Instructions: Heart Palpitations (ED), Opioid Safety, Pain Management Activity Restrictions/Additional Instructions: Thank you for choosing [facility] for your healthcare needs today. Please realize this is an emergency room and that we are providing you with a medical screening exam and this may not be complete and all inclusive of all the testing and or work up that you may need to determine your ailment or severity of your illness. You have been screened and evaluated and felt safe for discharge. Health conditions do change or evolve sometimes and as such it is important that you follow up with your Primary Doctor to be re checked, 3-5 days is a general good time frame for follow up. You are always welcome to return to the ED for re assessment if your symptoms are worsening or you have new concerns Coding Level of Care Code ED Playback Operator for Chg Fwd Documented by User: Maureen Eubanks MD 08/11/23 06:53 HPI - Neuro Symptoms/Deficit General: Chief Complaint: Neuro Symptoms/Deficit Stated Complaint: right arm left leg weakness. bk pain, heart irregu Time Seen by Provider: 08/11/23 05:09 [facility] ED PFSH: Medical History History of IBS Hypertension Surgical History S/P cholecystectomy Social History Smoking and tobacco/nicotine status: former use of tobacco/nicotine NIH stroke score Score: Total Score: 0 Physical Exam Neuro: ÁNGELA COMA SCALE: document GCS findings [place] coma scale total score: 15 Course Vital Signs: Vital signs: Vital Signs Temperature 97.8 F 08/11/23 05:01 Pulse Rate 88 08/11/23 05:16 Respiratory Rate 18 08/11/23 05:16 Blood Pressure 169/100 08/11/23 05:16 Pulse Oximetry 96 08/11/23 05:16 Oxygen Delivery Me thod Room Air 08/11/23 05:16 MDM - Neuro Symptoms/Deficit Medical Decision Making 77-year-old patient with palpitations. He is sinus on the monitor. EKG shows a sinus rhythm with a rate of 87, normal axis and an interventricular conduction delay with QRS of 114. No acute ST wave changes. CBC is normal. Other laboratory is pending. Head CT is pending. He will be checked out at shift change. Lab review: Lab work is unremarkable. No leukocytosis. BUN and creatinine are 21 and 0.8. Troponin is negative. EKG: Time 0459. Rate 87 normal sinus rhythm, No ST-T changes, no ectopy, normal [place] & QRS intervals, This was reviewed and interpreted by myself the ER physician CT head: No acute intracranial process. no intracranial hemorrhage, no evidence of infarct. no evidence of acute fracture.This was reviewed and interpreted by myself the ER physician. Assessment and plan: Palpitations - Discharged home - Discussed plan with patient. Answered any questions. - Evaluation and treatment of this problem were appropriate in the emergency setting. Lab Data 08/11/23 06:00 08/11/23 06:00 Laboratory Results WBC 5.61 10^3/uL (3.29-11.43) 08/11/23 06:00 RBC 5.29 10^6/uL (3.85-5.65) 08/11/23 06:00 Hgb 16.60 g/dL (11.27-16.99) 08/11/23 06:00 Hct 48.1 % (37-53) 08/11/23 06:00 MCV 90.9 fl (82-101) 08/11/23 06:00 MCH 31.4 pg (27-33) 08/11/23 06:00 MCHC 34.5 g/dL (30-55) 08/11/23 06:00 RDW 13.2 % (12.1-15.1) 08/11/23 06:00 Plt Count 195 10^3/cmm (157-399) 08/11/23 06:00 MPV 10.6 fL (7.4-10.4) H 08/11/23 06:00 Neut % (Auto) 58.3 % 08/11/23 06:00 Lymph % (Auto) 25.1 % 08/11/23 06:00 [place] % (Auto) 11.8 % 08/11/23 06:00 Eos % (Auto) 3.7 % 08/11/23 06:00 Baso % (Auto) 0.9 % 08/11/23 06:00 Neut # (Auto) 3.27 10^3/uL (1.8-7.7) 08/11/23 06:00 Lymph # (Auto) 1.4 10^3/uL (0.8-4.8) 08/11/23 06:00 [place] # (Auto) 0.7 10^3/uL (0.2-0.9) 08/11/23 06:00 Eos # (Auto) 0.2 10^3/uL (0.0-0.8) 08/11/23 06:00 Baso # (Auto) 0.1 10^3/uL (0.0-0.1) 08/11/23 06:00 Nucleated RBC % (auto) 0 % 08/11/23 06:00 Nucleated RBCs # 0.0 /100WBC 08/11/23 06:00 Sodium 140 mmol/L (136-145) 08/11/23 06:00 Potassium 3.9 mmol/L (3.5-5.1) 08/11/23 06:00 Chloride 102 mmol/L (98-107) 08/11/23 06:00 Carbon Dioxide 25 mmol/L (22-29) 08/11/23 06:00 Anion Gap 16.9 (5-19) 08/11/23 06:00 BUN 21 mg/dL (8-23) 08/11/23 06:00 Creatinine 0.8 mg/dL (0.7-1.2) 08/11/23 06:00 GFR Calculation Not Reportable 08/11/23 06:00 Glucose 111 mg/dL (65-115) 08/11/23 06:00 Calculated Osmolality 294 mOsm/kg (285-295) 08/11/23 06:00 Calcium 10.0 mg/dL (8.5-10.5) 08/11/23 06:00 Magnesium 2.2 mg/dL (1.7-2.3) 08/11/23 06:00 Total Bilirubin 1.3 mg/dL (0.15-1.2) H 08/11/23 06:00 AST 19 U/L (0-40) 08/11/23 06:00 ALT 17 U/L (0-41) 08/11/23 06:00 Alkaline Phosphatase 114 U/L (40-130) 08/11/23 06:00 Creatine Kinase 90 U/L (39-308) 08/11/23 06:00 Troponin T Baseline 10 ng/L (0-15) 08/11/23 06:00 NT-Pro-B Natriuret Pep < 36 pg/mL (0-450) 08/11/23 06:00 Total Protein 7.2 g/dL (6.6-8.7) 08/11/23 06:00 Albumin 4.6 g/dL (3.5-5.2) 08/11/23 06:00 Globulin 2.6 g/dL (1.3-4.6) 08/11/23 06:00 TSH 4.55 uIU/mL (0.27-4.20) H 08/11/23 06:00 Urine Color Yellow (Yellow) 08/11/23 06:10 Urine Appearance Clear (CLEAR) 08/11/23 06:10 Urine pH 7 (5-7) 08/11/23 06:10 Ur Specific [place] 1.005 (1.005-1.030) 08/11/23 06:10 Urine Protein Neg (Negative) 08/11/23 06:10 Urine Glucose (UA) Norm (Normal) 08/11/23 06:10 Urine Ketones Negative (Negative) 08/11/23 06:10 Urine Blood Neg (Negative) 08/11/23 06:10 Urine Nitrate Negative (Negative) 08/11/23 06:10 Urine Bilirubin Neg (Negative) 08/11/23 06:10 Urine Urobilinogen Neg mg/dL (Negative) 08/11/23 06:10 Ur Leukocyte Esterase Negative (Negative) 08/11/23 06:10 Discharge Plan Discharge Patient Disposition: Home Clinical Impression: Heart palpitations Condition: Stable Prescriptions: No Action Glucosamine 500 mg Tablet 500 mg PO DAILY Rx Instructions: administer with a meal Krill Oil ([place] 3 and 6) 1,500-165-67.5 mg Capsule 1 cap PO DAILY amlodipine 10 mg tablet 10 mg PO DAILY Qty: 7 1RF Discharge Orders: Discharge ED (Routine); Ordered 08/11/23 Ordered By: Maureen Eubanks Referrals: Sona Espitia MD [Primary Care Provider] - 4-7 days Discharge Diet: Usual diet Discharge Activity: Resume usual activity Patient Instructions: Heart Palpitations (ED), Opioid Safety, Pain Management Activity Restrictions/Additional Instructions: Thank you for choosing [facility] for your healthcare needs today. Please realize this is an emergency room and that we are providing you with a medical screening exam and this may not be complete and all inclusive of all the testing and or work up that you may need to determine your ailment or severity of your illness. You have been screened and evaluated and felt safe for discharge. Health conditions do change or evolve sometimes and as such it is important that you follow up with your Primary Doctor to be re checked, 3-5 days is a general good time frame for follow up. You are always welcome to return to the ED for re assessment if your symptoms are worsening or you have new concerns Coding Level of Care Code ED Playback Operator for Zachary Sawyer
[2023-08-11 06:05] LABS: Basophils # 0.1 10^3/uL (0.0-0.1); Basophils % 0.9 %; Eosinophils # 0.2 10^3/uL (0.0-0.8); Eosinophils % 3.7 %; Hematocrit 48.1 % (37-53); Lymphocytes # 1.4 10^3/uL (0.8-4.8); Lymphocytes % 25.1 %; Mean Corpuscular HGB Conc 34.5 g/dL (30-55); Mean Corpuscular Hemoglobin 31.4 pg (27-33); Mean Corpuscular Volume 90.9 fl (82-101); Mean Platelet Volume 10.6 fL (7.4-10.4); Monocytes # 0.7 10^3/uL (0.2-0.9); Monocytes % 11.8 %; Neutrophils # 3.27 10^3/uL (1.8-7.7); Neutrophils % 58.3 %; Nucleated Red Blood Cells % 0 %; Platelet Count 195 10^3/cmm (157-399); Red Blood Count 5.29 10^6/uL (3.85-5.65); Red Cell Distribution Width 13.2 % (12.1-15.1); White Blood Count 5.61 10^3/uL (3.29-11.43)
[2023-08-11 06:23] LABS: Add Urine Microscopic? NO; Charge for UA Resulting for Rev
[2023-08-11 06:24] LABS: Bilirubin Urine Neg (Negative); Blood Urine Neg (Negative); Glucose Urine UA Norm (Normal); Ketones Urine Negative (Negative); Leukocyte Esterase Urine Negative (Negative); Nitrate Urine Negative (Negative); Protein Urine Neg (Negative); Specific Gravity, Urine 1.005 (1.005-1.030); Urine Appearance Clear (CLEAR); Urine Color Yellow (Yellow); Urobilinogen Urine Neg (Negative); pH Urine 7 (5-7)
[2023-08-11 06:35] LABS: Troponin(5th) Baseline 10 ng/L (0-15)
[2023-08-11 06:42] LABS: Alanine Aminotransferase 17 U/L (0-41); Albumin Level 4.6 g/dL (3.5-5.2); Alkaline Phosphatase 114 U/L (40-130); Anion Gap 16.9 (5-19); Aspartate Amino Transferase 19 U/L (0-40); Blood Urea Nitrogen 21 mg/dL (8-23); Carbon Dioxide 25 mmol/L (22-29); Chloride 102 mmol/L (98-107); Creatine Phosphokinase 90 U/L (39-308); Creatinine Clr Calc Pharmacy 80.8369; Globulin 2.6 g/dL (1.3-4.6); Glucose 111 mg/dL (65-115); Magnesium 2.2 mg/dL (1.7-2.3); NT Pro B Type Natriuretic Pept < 36 pg/mL (0-450); Osmolality Calculated 294 mOsm/kg (285-295); Potassium 3.9 mmol/L (3.5-5.1); Sodium 140 mmol/L (136-145); Thyroid Stimulating Hormone 4.55 uIU/mL (0.27-4.20); Total Bilirubin 1.3 mg/dL (0.15-1.2); Total Protein 7.2 g/dL (6.6-8.7)
[2023-08-11 06:55] VITALS: PULSE 91; O2SAT 98
== END 2023-08-11 07:02 | disposition home or self-care (01) ==
PROVIDERS: Emergency Medicine; Emergency Provider Emergency Medicine; PCP Family Medicine
DX: R00.2 Palpitations (principal); I10 Essential (primary) hypertension; Z87.891 Personal history of nicotine dependence
CPT/HCPCS: 70450; 80053; 81003; 82550; 83735; 83880; 84443; 84484; 85025; 93005; 99285

== ENCOUNTER 2023-08-20 21:50 | Emergency (ER) | payer OTHER, SELFPAY ==
[2023-08-20 21:54] VITALS: BP 155/121; PULSE 92; RESP 16; TEMP 36.6; O2SAT 96; BMI 30.7
--- NOTE | 2023-08-20 22:36 | ECG_ITS ---
[facility] Test Date: 2023-08-20 Pat Name: Mark Noble Department: Room: Gender: Male Event Staff Member: : [id number] Requested By: Alex Fitzgerald Order Number: [id number] Edi MD: Monico López M.D. Measurements Intervals [place] Rate: 84 P: 10 KS: 158 QRS: -6 QRSD: 104 T: 10 QT: 382 QTc: 453 Interpretive Statements SINUS RHYTHM POSSIBLE LEFT ATRIAL ENLARGEMENT [-0.1mV P-WAVE IN V1/V2] Compared to ECG 08/11/2023 04:59:31 Intraventricular conduction delay no longer present Electronically Signed On 08-21-2023 10:59:58 CDT by Monico López M.D. [id number]
[2023-08-20 22:48] VITALS: BP 119/99; PULSE 91; RESP 18; O2SAT 95
[2023-08-20 22:50] LABS: Basophils % 0.8 %; Eosinophils # 0.2 10^3/uL (0.0-0.8); Eosinophils % 3.4 %; Hematocrit 45.6 % (37-53); Lymphocytes # 1.5 10^3/uL (0.8-4.8); Lymphocytes % 28.9 %; Mean Corpuscular Hemoglobin 31.1 pg (27-33); Mean Corpuscular Volume 91.6 fl (82-101); Mean Platelet Volume 10.5 fL (7.4-10.4); Monocytes # 0.6 10^3/uL (0.2-0.9); Monocytes % 11.3 %; Neutrophils # 2.92 10^3/uL (1.8-7.7); Neutrophils % 55.2 %; Nucleated Red Blood Cells % 0 %; Platelet Count 186 10^3/cmm (157-399); Red Blood Count 4.98 10^6/uL (3.85-5.65); Red Cell Distribution Width 13.2 % (12.1-15.1); White Blood Count 5.29 10^3/uL (3.29-11.43)
[2023-08-20 23:06] LABS: Troponin(5th) Baseline 11 ng/L (0-15)
--- NOTE | 2023-08-20 23:06 | ED_ITS ---
HPI - General Adult 2 General: Chief complaint: General Medical Stated complaint: left eye darkening, bp off. irregular heartbeat Time Seen by Provider: 08/20/23 22:13 History of Present Illness: Patient presents to the ER with multiple complaints, including irregular blood pressure, left vision darkening, feels like he is in slow motion, is concerned that his diastolic during 1 reading over the last 3 days was 45 which patient says is low. Patient is not complaining of any vision changes right now. Patient is taking a magnesium supplement as well as a immunity vitamin and is thinking that they are working against each other and this may be making him slow. 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 Patient is still on it and thinks he wants to get off of it. Review of Systems 2 General: Reports: 10 or more systems reviewed and unremarkable except in HPI and below PFSH ED 2 PFSH: Medical History History of IBS Hypertension Surgical History S/P cholecystectomy Social History Smoking and tobacco/nicotine status: former use of tobacco/nicotine Physical Exam 2 Const: COMMON NORMALS: no acute distress, average body habitus, patient oriented x3, no limitations, healthy appearing, alert and well nourished HENMT: COMMON NORMALS: normocephalic, atraumatic, hearing grossly normal bilaterally, external ears normal, Normal external nose present and moist oral mucous membranes HEAD & SCALP: normocephalic and atraumatic NOSE: Normal external nose present EXTERNAL EAR: Yes external ears normal Eye: COMMON NORMALS: Equal, round and reactive pupils present, EOMs intact bilaterally, conjunctivae normal and no scleral icterus CONJUNCTIVA: Yes conjunctivae normal PUPIL: Yes Equal, round and reactive pupils present Neck/C-Spine: COMMON NORMALS: full ROM, no lymphadenopathy, supple, no meningeal signs, no JVD and Thyroid normal THYROID: Thyroid normal Chest: COMMONS NORMALS: normal inspection of the chest and normal palpation of entire chest wall Resp: COMMON NORMALS: normal respiratory effort, No retractions, No use of accessory muscles and clear to auscultation bilaterally AUSCULTATION: clear to auscultation bilaterally Cardio: COMMON NORMALS: no JVD, regular rate, regular rhythm, S1 normal heart sound present, S2 normal heart sound present, No gallops present (Cardio), No clicks present (Cardio), No murmurs present (Cardio) and No rub (Cardio) R ATE: regular rate RHYTHM: regular rhythm HEART SOUNDS: S1 normal heart sound present and S2 normal heart sound present GI: COMMON NORMALS: Normal to inspection, nondistended, normoactive bowel sounds present, Soft to palpation, non-tender, No hepatosplenomegaly present and no masses PALPATION: Yes Soft to palpation and Yes No hepatosplenomegaly present Neuro: COMMON NORMALS: patient oriented x3 SENSORIUM/ORIENTATION: Yes alert MENINGEAL SIGNS: Yes no meningeal signs Course 2 Vital Signs: Vital signs: Vital Signs Temperature 97.8 F 08/20/23 21:54 Pulse Rate 91 08/20/23 22:48 Respiratory Rate 18 08/20/23 22:48 Blood Pressure 119/99 08/20/23 22:48 Pulse Oximetry 95 08/20/23 22:48 Oxygen Delivery Me thod Room Air 08/20/23 22:48 MDM - General Adult Medical Decision Making Patient declined to have any x-rays or CTs done at this visit said he has had them done multiple times here recently and will not have them done again. Will waiting for patient's lab work to come back but decided he was going to go home. And was done being here. Patient be discharged home. Medical Records I reviewed the patient's medical records. Lab Data I reviewed the patient's lab results. 08/20/23 22:44 08/20/23 22:44 Laboratory Results WBC 5.29 10^3/uL (3.29-11.43) 08/20/23 22:44 RBC 4.98 10^6/uL (3.85-5.65) 08/20/23 22:44 Hgb 15.50 g/dL (11.27-16.99) 08/20/23 22:44 Hct 45.6 % (37-53) 08/20/23 22:44 MCV 91.6 fl (82-101) 08/20/23 22:44 MCH 31.1 pg (27-33) 08/20/23 22:44 MCHC 34.0 g/dL (30-55) 08/20/23 22:44 RDW 13.2 % (12.1-15.1) 08/20/23 22:44 Plt Count 186 10^3/cmm (157-399) 08/20/23 22:44 MPV 10.5 fL (7.4-10.4) H 08/20/23 22:44 Neut % (Auto) 55.2 % 08/20/23 22:44 Lymph % (Auto) 28.9 % 08/20/23 22:44 [place] % (Auto) 11.3 % 08/20/23 22:44 Eos % (Auto) 3.4 % 08/20/23 22:44 Baso % (Auto) 0.8 % 08/20/23 22:44 Neut # (Auto) 2.92 10^3/uL (1.8-7.7) 08/20/23 22:44 Lymph # (Auto) 1.5 10^3/uL (0.8-4.8) 08/20/23 22:44 [place] # (Auto) 0.6 10^3/uL (0.2-0.9) 08/20/23 22:44 Eos # (Auto) 0.2 10^3/uL (0.0-0.8) 08/20/23 22:44 Baso # (Auto) 0.0 10^3/uL (0.0-0.1) 08/20/23 22:44 Nucleated RBC % (auto) 0 % 08/20/23 22:44 Nucleated RBCs # 0.0 /100WBC 08/20/23 22:44 Sodium 139 mmol/L (136-145) 08/20/23 22:44 Potassium 3.8 mmol/L (3.5-5.1) 08/20/23 22:44 Chloride 104 mmol/L (98-107) 08/20/23 22:44 Carbon Dioxide 21 mmol/L (22-29) L 08/20/23 22:44 Anion Gap 17.8 (5-19) 08/20/23 22:44 BUN 19 mg/dL (8-23) 08/20/23 22:44 Creatinine 0.8 mg/dL (0.7-1.2) 08/20/23 22:44 GFR Calculation Not Reportable 08/20/23 22:44 Glucose 114 mg/dL (65-115) 08/20/23 22:44 Calculated Osmolality 291 mOsm/kg (285-295) 08/20/23 22:44 Calcium 9.2 mg/dL (8.5-10.5) 08/20/23 22:44 Magnesium 2.1 mg/dL (1.7-2.3) 08/20/23 22:44 Total Bilirubin 1.3 mg/dL (0.15-1.2) H 08/20/23 22:44 AST 21 U/L (0-40) 08/20/23 22:44 ALT 17 U/L (0-41) 08/20/23 22:44 Alkaline Phosphatase 97 U/L (40-130) 08/20/23 22:44 Troponin T Baseline 11 ng/L (0-15) 08/20/23 22:44 Total Protein 6.8 g/dL (6.6-8.7) 08/20/23 22:44 Albumin 4.3 g/dL (3.5-5.2) 08/20/23 22:44 Globulin 2.5 g/dL (1.3-4.6) 08/20/23 22:44 No radiology studies performed this visit Discharge Plan Discharge Patient Disposition: Home Clinical Impression: Hypertension Qualifiers: Hypertension type: unspecified Qualified Code(s): I10 - Essential (primary) hypertension Condition: Stable Prescriptions: No Action Glucosamine 500 mg Tablet 500 mg PO DAILY Rx Instructions: administer with a meal Krill Oil ([place] 3 and 6) 1,500-165-67.5 mg Capsule 1 cap PO DAILY amlodipine 10 mg tablet 10 mg PO DAILY Qty: 7 1RF Discharge Orders: Discharge ED (Routine); Ordered 08/20/23 Ordered By: Alex Fitzgerald Referrals: Sona Espitia MD [Primary Care Provider] - 1 week Patient Instructions: Hypertension (ED) Activity Restrictions/Additional Instructions: Your evaluation in the ER did not show any acute cause of your symptoms. It may be a medication interaction or intolerance. Please follow-up with your family practice physician for further evaluation. Coding Level of Care Code ED Rider Ticket Worker for Zachary Sawyer
[2023-08-20 23:22] LABS: Alanine Aminotransferase 17 U/L (0-41); Albumin Level 4.3 g/dL (3.5-5.2); Alkaline Phosphatase 97 U/L (40-130); Aspartate Amino Transferase 21 U/L (0-40); Blood Urea Nitrogen 19 mg/dL (8-23); Calcium 9.2 mg/dL (8.5-10.5); Carbon Dioxide 21 mmol/L (22-29); Chloride 104 mmol/L (98-107); Creatinine Clr Calc Pharmacy 80.8369; Globulin 2.5 g/dL (1.3-4.6); Glucose 114 mg/dL (65-115); Magnesium 2.1 mg/dL (1.7-2.3); Osmolality Calculated 291 mOsm/kg (285-295); Sodium 139 mmol/L (136-145); Total Bilirubin 1.3 mg/dL (0.15-1.2); Total Protein 6.8 g/dL (6.6-8.7)
[2023-08-20 23:24] LABS: Anion Gap 17.8 (5-19); Potassium 3.8 mmol/L (3.5-5.1)
[2023-08-21 00:01] VITALS: BP 153/84; PULSE 72; RESP 16; O2SAT 94
== END 2023-08-21 00:02 | disposition home or self-care (01) ==
PROVIDERS: Emergency Provider Emergency Medicine; PCP Family Medicine
DX: I10 Essential (primary) hypertension (principal); Z87.891 Personal history of nicotine dependence
CPT/HCPCS: 80053; 83735; 84484; 85025; 93005; 99284

== ENCOUNTER 2023-11-17 19:46 | Emergency (ER) | payer OTHER, SELFPAY ==
[2023-11-17 19:56] VITALS: BP 184/97; PULSE 77; TEMP 36.6; O2SAT 95
[2023-11-17 20:30] VITALS: BP 157/126; PULSE 86; RESP 16; O2SAT 98
--- NOTE | 2023-11-17 20:30 | ED_ITS ---
HPI - General Adult 2 General: Chief complaint: General Medical Stated complaint: feels odd in slow motion Time Seen by Provider: 11/17/23 20:22 Source: patient Mode of arrival: ambulatory Limitations: no limitations History of Present Illness: 78-year-old male who states that the las t 3 days he states he feels like he is been going kind of in slow motion at times he states that he just feels groggy. He states that he is on amlodipine and he stopped taking it recently because he seen a [place] study that makes your brain smaller when you take it so he quit taking that he has not talked to his PCP about this either. Patient here has no focal deficits he states he has drank some orange juice today and it seemed his curative symptoms and he feels much improved. Associated symptoms: Deny chest pain, dyspnea, headache(s), nausea, rash or vomiting Related Data Home Medications Medication Instructions Recorded Confirmed glucosamine sulfate 500 mg tablet 500 mg PO DAILY 06/19/23 06/19/23 (Glucosamine) krill 1 cap PO DAILY 06/19/23 06/19/23 [id number]-zvw-astax 1,500 mg-165 mg-67.5 mg capsule (Krill Oil ([place] 3 and 6)) Previous Rx's Medication Instructions Recorded amlodipine 10 mg tablet 10 mg PO DAILY #7 tabs 07/31/22 Allergies Allergy/AdvReac Type Severity Reaction Status Date / Time ciprofloxacin Allergy ALGY-Rash Verified 11/17/23 20:01 Review of Systems 2 Const: Denies: fever(s), chills, body aches or change in appetite Eyes: Denies: blurry vision or eye discomfort ENMT: Denies: throat pain or dental pain Card: Denies: chest pain Resp: Denies: dyspnea GI: Denies: abdominal pain, nausea, vomiting or diarrhea : Denies: dysuria Musc: Denies: neck pain or back pain Skin/Breast: Denies: rash Neuro: Denies: headache(s) PFSH ED 2 PFSH: Medical History History of IBS Hypertension Surgical History S/P cholecystectomy Social History Smoking and tobacco/nicotine status: former use of tobacco/nicotine Physical Exam 2 Const: COMMON NORMALS: no acute distress, patient oriented x3 and healthy appearing HENMT: COMMON NORMALS: normocephalic and atraumatic HEAD & SCALP: n ormocephalic and atraumatic Eye: COMMON NORMALS: Equal, round and reactive pupils present and EOMs intact bilaterally PUPIL: Yes Equal, round and reactive pupils present Neck/C-Spine: COMMON NORMALS: full ROM and supple Chest: COMMONS NORMALS: normal inspection of the chest and normal palpation of entire chest wall Resp: COMMON NORMALS: normal respiratory effort, No retractions, No use of accessory muscles and clear to auscultation bilaterally AUSCULTATION: clear to auscultation bilaterally Cardio: COMMON NORMALS: regular rate, regular rhythm and No murmurs present (Cardio) RATE: regular rate RHYTHM: regular rhythm GI: COMMON NORMALS: Normal to inspection, nondistended, normoactive bowel sounds present, Soft to palpation, non-tender and no masses PALPATION: Yes Soft to palpation Extremity: COMMON NORMALS: normal to inspection and full ROM Neuro: COMMON NORMALS: patient oriented x3, moves all extremities and no focal motor deficits Psych: COMMON NORMALS: mental status grossly normal, Normal thought process present and cooperative THOUGHT PROCESS: Normal thought process present Skin: COMMON NORMALS: no rashes or lesions noted and no wounds GENERAL SKIN EXAM: no rashes or lesions noted Course 2 Vital Signs: Vital signs: Vital Signs Temperature 97.8 F 11/17/23 19:56 Pulse Rate 97 11/17/23 20:40 Respiratory Rate 16 11/17/23 20:40 Blood Pressure 157/126 11/17/23 20:40 Pulse Oximetry 98 11/17/23 20:40 Oxygen Delivery Me thod Room Air 11/17/23 20:40 MDM - General Adult Medical Decision Making Patient presents here with complaint of stating he feels like he is in slow motion is not really able to give me any specific complaints other than he feels groggy at times he refused a head CT he refused to have his glucose checked his blood work here is normal patient did not wait for all the blood work to come back and wanted to leave and signed out AGAINST MEDICAL ADVICE. He had no focal deficits here. Medical Records I reviewed the patient's medical records. Lab Data I reviewed the patient's lab results. 11/17/23 20:37 11/17/23 20:37 Laboratory Results WBC 6.96 10^3/uL (3.29-11.43) 11/17/23 20:37 RBC 5.03 10^6/uL (3.85-5.65) 11/17/23 20:37 Hgb 16.00 g/dL (11.27-16.99) 11/17/23 20:37 Hct 46.8 % (37-53) 11/17/23 20:37 MCV 93.0 fl (82-101) 11/17/23 20: MCH 31.8 pg (27-33) 11/17/23 20: MCHC 34.2 g/dL (30-55) 11/17/23 20:37 RDW 13.4 % (12.1-15.1) 11/17/23 20:37 Plt Count 199 10^3/cmm (157-399) 11/17/23 20:37 MPV 10.3 fL (7.4-10.4) 11/17/23 20:37 Neut % (Auto) 68.7 % 11/17/23 20:37 Lymph % (Auto) 18.2 % 11/17/23 20:37 Cowley % (Auto) 9.6 % 11/17/23 20:37 Eos % (Auto) 2.7 % 11/17/23 20:37 Baso % (Auto) 0.7 % 11/17/23 20:37 Neut # (Auto) 4.77 10^3/uL (1.8-7.7) 11/17/23 20:37 Lymph # (Auto) 1.3 10^3/uL (0.8-4.8) 11/17/23 20:37 Cowley # (Auto) 0.7 10^3/uL (0.2-0.9) 11/17/23 20:37 Eos # (Auto) 0.2 10^3/uL (0.0-0.8) 11/17/23 20:37 Baso # (Auto) 0.1 10^3/uL (0.0-0.1) 11/17/23 20:37 Nucleated RBC % (auto) 0 % 11/17/23 20:37 Nucleated RBCs # 0.0 /100WBC 11/17/23 20:37 All radiology interpretation(s) finalized by discharge EKG Data EKG 1: I personally reviewed and interpreted this EKG as follows: EKG interpretation date: 11/17/23 EKG interpretation time: 20:32 Interpretation: nsr hr [address] or t wave abnormalities qrs 106 qtc 424 Discharge Plan Discharge Patient Disposition: Left Against Medical Advice Clinical Impression: Weakness Condition: Stable Prescriptions: No Action Glucosamine 500 mg Tablet 500 mg PO DAILY Rx Instructions: administer with a meal Krill Oil ([place] 3 and 6) 1,500-165-67.5 mg Capsule 1 cap PO DAILY amlodipine 10 mg tablet 10 mg PO DAILY Qty: 7 1RF Referrals: Sona Espitia MD [Primary Care Provider] - Discharge Diet: Low Cholesterol Discharge Activity: Resume usual activity Coding Level of Care Code ED Traffic Sign Erection Supervisor for Chg Silverio
--- NOTE | 2023-11-17 20:32 | ECG_ITS ---
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 Measurements Intervals Echo Rate: 65 P: 34 WI: 166 QRS: 28 QRSD: 106 T: 54 QT: 412 QTc: 430 Interpretive Statements SINUS RHYTHM Compared to ECG 08/20/2023 22:36:32 No significant changes Electronically Signed On 11-18-2023 16:26:10 CDT by Monico López M.D. [id number]
[2023-11-17 20:40] VITALS: BP 157/126; PULSE 97; RESP 16; O2SAT 98
[2023-11-17 20:45] LABS: Basophils # 0.1 10^3/uL (0.0-0.1); Basophils % 0.7 %; Eosinophils # 0.2 10^3/uL (0.0-0.8); Eosinophils % 2.7 %; Hematocrit 46.8 % (37-53); Lymphocytes # 1.3 10^3/uL (0.8-4.8); Lymphocytes % 18.2 %; Mean Corpuscular HGB Conc 34.2 g/dL (30-55); Mean Corpuscular Hemoglobin 31.8 pg (27-33); Mean Platelet Volume 10.3 fL (7.4-10.4); Monocytes # 0.7 10^3/uL (0.2-0.9); Monocytes % 9.6 %; Neutrophils # 4.77 10^3/uL (1.8-7.7); Neutrophils % 68.7 %; Nucleated Red Blood Cells % 0 %; Platelet Count 199 10^3/cmm (157-399); Red Blood Count 5.03 10^6/uL (3.85-5.65); Red Cell Distribution Width 13.4 % (12.1-15.1); White Blood Count 6.96 10^3/uL (3.29-11.43)
--- NOTE | 2023-11-17 20:59 | PC.NURSE ---
Patient refused to have CT scan due to radiation. Pt refused xray for fear of [facility] not paying for it. Pt refused finger stick glucose and urinalysis. Will await lab results.
[2023-11-17 21:11] LABS: Alanine Aminotransferase 17 U/L (0-41); Albumin Level 4.2 g/dL (3.5-5.2); Alkaline Phosphatase 92 U/L (40-130); Anion Gap 15.1 (5-19); Aspartate Amino Transferase 19 U/L (0-40); Blood Urea Nitrogen 20 mg/dL (8-23); Calcium 9.2 mg/dL (8.5-10.5); Carbon Dioxide 25 mmol/L (22-29); Chloride 100 mmol/L (98-107); Creatinine Clr Calc Pharmacy 70.7323; Globulin 2.7 g/dL (1.3-4.6); Glucose 129 mg/dL (65-115); Osmolality Calculated 286 mOsm/kg (285-295); Potassium 4.1 mmol/L (3.5-5.1); Sodium 136 mmol/L (136-145); Total Protein 6.9 g/dL (6.6-8.7)
== END 2023-11-17 20:31 | disposition left against medical advice (07) ==
PROVIDERS: Emergency Provider Emergency Medicine; PCP Family Medicine
DX: R53.1 Weakness (principal); Z53.29 Procedure and treatment not carried out because of patient's decision for other reasons; Z91.148 Patient's other noncompliance with medication regimen for other reason
CPT/HCPCS: 36415; 80053; 84443; 85025; 93005; 99285

== ENCOUNTER 2024-07-04 16:10 | Emergency (ER) | payer OTHER, SELFPAY ==
[2024-07-04 16:16] VITALS: BP 143/91; PULSE 99; RESP 18; TEMP 36.5; O2SAT 97; BMI 32.3
--- NOTE | 2024-07-04 16:38 | ED_ITS ---
HPI - Dental/Oral General: Chief complaint: Dental/Oral Stated complaint: tooth pain Time Seen by Provider: 07/04/24 16:20 Source: patient Mode of arrival: ambulatory Limitations: no limitations History of Present Illness: 78-year-old male states has been having intermittent left-sided dental pain over the last 3 days states been sharp pains come and go he also had some high blood pressure she is on amlodipine he denies any pain currently denies any difficulty swallowing or trismus Associated symptoms: Denies fever(s) Related Data Home Medications ?Medication ?Instructions ?Recorded ?Confirmed glucosamine sulfate 500 mg tablet 500 mg PO DAILY 04/1206/19/23 (Glucosamine) krill 1 cap PO DAILY 06/19/2304/12 [id number]-wyb-astax 1,500 mg-165 mg-67.5 mg capsule (Krill Oil ([place] 3 and 6)) Previous Rx's ?Medication ?Instructions ?Recorded amlodipine 10 mg tablet 10 mg PO DAILY #7 tabs 07/31 Allergies Allergy/AdvReac Type Severity Reaction Status Date / Time ciprofloxacin Allergy ALGY-Rash Verified 01/02/24 23:14 Review of Systems Const: Denies: fever(s), chills, body aches or change in appetite ENMT: Reports: dental pain; Denies: throat pain Card: Denies: chest pain Resp: Denies: dyspnea GI: Denies: abdominal pain, nausea, vomiting or diarrhea Musc: Denies: neck pain or back pain Skin/Breast: Denies: rash Neuro: Denies: headache(s) PFSH ED PFSH: Medical History History of IBS Hypertension Surgical History S/P cholecystectomy Social History Smoking and tobacco/nicotine status: former use of tobacco/nicotine Physical Exam Const: COMMON NORMALS: no acute distress, patient oriented x3 and healthy appearing HENMT: COMMON NORMALS: normocephalic and atraumatic HEAD & SCALP: normocephalic and atraumatic OTHER: No abscess or tenderness on exam at this time no trismus Neck/C-Spine: COMMON NORMALS: full ROM and supple Chest: COMMONS NORMALS: normal inspection of the chest Resp: COMMON NORMALS: normal respiratory effort Cardio: COMMON NORMALS: regular rate RATE: regular rate Extremity: COMMON NORMALS: normal to inspection and full ROM Neuro: COMMON NORMALS: patient oriented x3, moves all extremities and no focal motor deficits Psych: COMMON NORMALS: mental status grossly normal, Normal thought process present and cooperative THOUGHT PROCESS: Normal thought process present Skin: COMMON NORMALS: no rashes or lesions noted and no wounds GENERAL SKIN EXAM: no rashes or lesions noted Course Vital Signs: Vital signs: Vital Signs Temperature 97.7 F 07/04/24 16:16 Pulse Rate 99 07/04/24 16:16 Respiratory Rate 18 07/04/24 16:16 Blood Pressure 143/91 07/04/24 16:16 Pulse Oximetry 97 07/04/24 16:16 Oxygen Delivery Me thod Room Air 07/04/24 16:16 MDM - Dental/Oral Medical Decision Making Patient presents here with intermittent dental pain is no signs of any infection his exam here is benign he is pain-free currently I did offer him pain med prescription could be trigeminal neuralgia he is follow-up with his PCP and return if worsening he understands agrees to plan Medical Records I reviewed the patient's medical records. No radiology studies performed this visit Discharge Plan Discharge Patient Disposition: Home Clinical Impression: Toothache Hypertension Qualifiers: Hypertension type: unspecified Qualified Code(s): I10 - Essential (primary) hypertension Condition: Stable Prescriptions: No Action Glucosamine 500 mg Tablet 500 mg PO DAILY Rx Instructions: administer with a meal Krill Oil ([place] 3 and 6) 1,500-165-67.5 mg Capsule 1 cap PO DAILY amlodipine 10 mg tablet 10 mg PO DAILY Qty: 7 1RF Discharge Orders: Discharge ED (Routine); Ordered 07/04/24 Ordered By: Angel Ortiz Referrals: Sona Espitia MD [Primary Care Provider, Family Practice] - 4-7 days Discharge Diet: Advance as tolerated Discharge Activity: Resume usual activity Patient Instructions: Hypertension (ED), Toothache (ED) Print Language: Com[place]an Coding Level of Care Code ED Communications Tower Climber for Katrinag Silverio
== END 2024-07-04 16:39 | disposition home or self-care (01) ==
PROVIDERS: Emergency Provider Emergency Medicine; PCP Family Medicine
DX: K08.89 Other specified disorders of teeth and supporting structures (principal); I10 Essential (primary) hypertension; Z79.899 Other long term (current) drug therapy; Z88.0 Allergy status to penicillin; Z87.891 Personal history of nicotine dependence
CPT/HCPCS: 99282